=== PATIENT | female | born 1940 | race Caucasian/White ===

== ENCOUNTER 2021-07-08 15:03 | Inpatient (IN) | payer OTHER ==
[~2021-07-08] VITALS: Ht 167.6 cm; Wt 52.3 kg
[2021-07-08 16:22] LABS: BASOPHILS % (AUTO) 0.3 % (0-1); EOSINOPHILS % (AUTO) 0 % (0-6); HEMATOCRIT 42.1 % (35.0-45.0); HEMOGLOBIN 13.9 g/dl (12.0-16.0); MEAN CORPUSCULAR VOLUME 90.9 FL (78-98); MEAN PLATELET VOLUME 9.4 FL (7.4-10.4); MONOCYTES # (AUTO) 0.9 X10'3 (0-0.9); MONOCYTES % (AUTO) 7.5 % (2-12); NEUTROPHILS # (AUTO) 9.5 X10'3 (1.8-7.7); NEUTROPHILS % (AUTO) 83.2 % (42-75); PLATELET COUNT 198 X10'3 (140-440); RED BLOOD COUNT 4.63 X10'6 (4.20-5.60); RED CELL DISTRIBUTION WIDTH 14.6 % (11.5-14.5); WHITE BLOOD COUNT 11.4 X10'3 (4.5-11.0)
[2021-07-08 16:34] LABS: ALANINE AMINOTRANSFERASE 71 U/L (12-78); ALBUMIN/GLOBULIN RATIO 0.7 (1.1-1.5); ALKALINE PHOSPHATASE 83 IU/L (46-116); ANION GAP 11 (8-16); ASPARTATE AMINO TRANSFERASE 76 U/L (10-37); BILIRUBIN,TOTAL 1.7 MG/DL (0.1-1.0); BLOOD UREA NITROGEN 50 MG/DL (7-18); CALCIUM 9.6 MG/DL (8.5-10.1); CHLORIDE 111 MMOL/L (99-107); CREATININE 1.02 MG/DL (0.40-0.90); GLUCOSE 191 MG/DL (70-104); POTASSIUM 3.6 MMOL/L (3.5-5.1); SODIUM 151 MMOL/L (135-145); TOTAL CARBON DIOXIDE 28.7 MMOL/L (24-32); TOTAL PROTEIN 7.3 G/DL (6.4-8.2); eGFR 52 ML/MIN
[2021-07-08] MEDS ORDERED: normal saline 1000ml 1,000 ML IV ONE (22:30)
[2021-07-09 01:35] LABS: CLARITY,URINE SLIGHTLY CLOUDY (Clear); COLOR,URINE YELLOW (Yellow); GLUCOSE, URINE NEGATIVE (Neg); KETONES,URINE NEGATIVE (Neg); LEUKOCYTE ESTERASE ,URINE NEGATIVE (Neg); NITRITES, URINE NEGATIVE (Neg); OCCULT BLOOD,URINE LARGE (Neg); PROTEIN,URINE 30 mg/dl (Neg); UROBILINOGEN,URINE 0.2 E.U/dL (0.2-1.0)
[2021-07-09 01:42] LABS: UA COLLECTION TYPE STRAIGHT CATH
[2021-07-09] MEDS ORDERED: magnesium hydroxide 30ml (MOM) UD suspension PO PRN (01:45)
[2021-07-09] MEDS ORDERED: acetaminophen 325mg tablet PO PRN ×2 (01:45)
[2021-07-09] MEDS ORDERED: diphenhydrAMINE 50 mg/ml inj IV PRN (01:45)
[2021-07-09] MEDS ORDERED: bisacodyl 10mg suppository rectal RC PRN (01:45)
[2021-07-09] MEDS ORDERED: acetaminophen 650mg rectal suppository RC PRN (01:45)
[2021-07-09] MEDS ORDERED: morphine 2 MG/ML inj. syringe IV PRN ×2 (01:45)
[2021-07-09] MEDS ORDERED: mag hydrox/Alum hydrox/simeth 30ml oral suspension PO PRN (01:45)
[2021-07-09] MEDS ORDERED: diphenhydrAMINE 25mg capsule PO PRN (01:45)
[2021-07-09] MEDS ORDERED: ondansetron/PF 4mg/2ml inj IV PRN (01:45)
[2021-07-09] MEDS ORDERED: ondansetron 4mg rapidly disintigrating tab PO PRN (01:45)
[2021-07-09] MEDS: dextrose 5%-water 1,000 ML IV SCH ×3 (02:03→14:00)
[2021-07-09 02:04] LABS: BACTERIA,URINE 2+ /HPF (Neg); SQUAMOUS EPITHELIAL CELL,UR FEW /LPF (FEW)
[2021-07-09 02:05] LABS: YEAST MODERATE /HPF (NEGATIVE)
[2021-07-09 02:13] LABS: HEMOGLOBIN A1C 5.6 % (4.5-6.2)
--- NOTE | 2021-07-09 02:20 | NUR ---
right medical heel wound, quarter sized black region. kimberlee Combs notified by phone per his request
[2021-07-09 02:24] LABS: MAGNESIUM 2.6 MG/DL (1.5-2.4); PHOSPHORUS 3.9 MG/DL (2.3-4.5)
[2021-07-09 03:25] LABS: APTT 21 SECONDS (22-32)
[2021-07-09 04:10] VITALS: BP 133/90
--- NOTE | 2021-07-09 04:10 | NUR ---
PATIENT ADMITTED TO ROOM 356B FROM ER FOR HYPERNATREMIA. PLACED COMFORTABLE IN BED. VITAL SIGNS TAKEN AND RECORDED.
--- NOTE | 2021-07-09 06:14 | NUR ---
Problems reprioritized. Patient report given, questions answered & plan of care reviewed with BRAIN ACI.
--- NOTE | 2021-07-09 06:20 | NUR ---
Patient in room [facility]. I have received report from AYALA COSBY and had the opportunity to ask questions and assume patient care.
[2021-07-09 07:00] VITALS: BP 119/65
[2021-07-09] MEDS: pantoprazole 40mg Tablet.DR PO SCH (07:30)
[2021-07-09] MEDS: docusate sod 100mg capsule PO SCH ×2 (08:00→20:54)
[2021-07-09] MEDS: ciprofloxacin/D5W 200mg/100mL 100 ML IV SCH ×2 (08:00→20:53)
[2021-07-09] MEDS: heparin, porcine 5000 units/ml vial SQ SCH ×2 (08:03→20:54)
[2021-07-09 10:00] LABS: ALBUMIN 2.2 G/DL (3.4-5.0); ANION GAP 7 (8-16); BLOOD UREA NITROGEN 51 MG/DL (7-18); BUN/CREATININE RATIO 65.4 (6.6-38.0); CALCIUM 8.4 MG/DL (8.5-10.1); CHLORIDE 113 MMOL/L (99-107); CREATININE 0.78 MG/DL (0.40-0.90); GLUCOSE 184 MG/DL (70-104); POTASSIUM 3.5 MMOL/L (3.5-5.1); SODIUM 147 MMOL/L (135-145); TOTAL CARBON DIOXIDE 26.8 MMOL/L (24-32); eGFR 71 ML/MIN
[2021-07-09 11:11] VITALS: BP 112/61
--- NOTE | 2021-07-09 14:28 | NUR ---
Calorie count consult: Calorie count not indicated at this time as pt is on a clear liquid diet which will not meet patient's estimated nutrient needs given the nature of the diet. Per H&P pt with h/o malnutrition, right heel decubitus stage II, advanced dementia, and dysphagia. Per ED report pt was eating soft food for the last several weeks however two days ago stopped eating or drinking anything with increased difficulty swallowing. Pt s/p BSS with ST recs to continue current diet as pt able to swallow liquids but spits out food. Pt documented with 0% PO intake first meal. Pt at a high risk for malnutrition if to continue on restricted diet and/or acceptance of PO intake does not improve. Recommend advancing diet to regular or at least full liquids to allow more variety in hopes of optimizing PO intake. IF PO intake does not improve pt would benefit from nutrition support to meet estimated nutrient needs if within POC. Noted pt receiving D5 at 100 mL/hr providing 408 kcal/day. Pt with a low Gume of 10, pending wound care assessment at this time. Will continue to follow closely and make recommendations as appropriate. Recommendations: 1) Advance to regular diet as medically indicated with f/u BSS with ST 2) IF unable to advance to solid food consider advancing to full liquid diet to allow additional options 3) IF unable to advance diet and/or meal acceptance does not improve, consider EN if within POC 4) Routine bowel care 5) Scaled weight this admit; weekly scaled weights thereafter Addendum: 07/09/21 at [address] Amended: Links added.
[2021-07-09] MEDS ORDERED: NO HOME MEDS (15:59)
--- NOTE | 2021-07-09 18:14 | NUR ---
Patient in room [facility]. I have received report from AYALA Anderson and had the opportunity to ask questions and assume patient care.
--- NOTE | 2021-07-09 18:58 | NUR ---
Patient in room [facility]. I have received report from AYALA Tello and had the opportunity to ask questions and assume patient care.
[2021-07-09 20:00] VITALS: BP 103/58
[2021-07-09] MEDS: lactobacillus rhamnosus 10,000 MMU CELLS/CAPSULE PO SCH (20:54)
[2021-07-09] MEDS ORDERED: temazepam 15mg capsule PO PRN (21:00)
[2021-07-10] VITALS: BP 107/50
[2021-07-10] MEDS: dextrose 5%-water 1,000 ML IV SCH ×2 (00:53→15:09)
--- NOTE | 2021-07-10 03:15 | NUR ---
notified requesting nix cath for pt being incontinent and having sacral wound
[2021-07-10] MEDS ORDERED: LIDOcaine 2% 10ml TOPICAL JELLY (Urojet) TP ONE (03:20)
--- NOTE | 2021-07-10 06:45 | NUR ---
Problems reprioritized. Patient report given, questions answered & plan of care reviewed with AYALA Ortega.
[2021-07-10 07:10] LABS: BASOPHILS % (AUTO) 0.1 % (0-1); EOSINOPHILS % (AUTO) 0.2 % (0-6); HEMATOCRIT 29.5 % (35.0-45.0); HEMOGLOBIN 10.1 g/dl (12.0-16.0); LYMPHOCYTES # (AUTO) 1.2 X10'3 (1.1-4.8); LYMPHOCYTES % (AUTO) 17.9 % (21-51); MEAN CORPUSCULAR HEMOGLOBIN 30.8 PG (27.0-31.0); MEAN CORPUSCULAR HGB CONC 34.2 g/dL (33.0-36.5); MEAN CORPUSCULAR VOLUME 89.9 FL (78-98); MEAN PLATELET VOLUME 9.9 FL (7.4-10.4); MONOCYTES # (AUTO) 0.5 X10'3 (0-0.9); MONOCYTES % (AUTO) 7.4 % (2-12); NEUTROPHILS % (AUTO) 74.4 % (42-75); PLATELET COUNT 116 X10'3 (140-440); RED BLOOD COUNT 3.28 X10'6 (4.20-5.60); WHITE BLOOD COUNT 6.7 X10'3 (4.5-11.0)
[2021-07-10 07:34] LABS: ALANINE AMINOTRANSFERASE 65 U/L (12-78); ALBUMIN/GLOBULIN RATIO 0.7 (1.1-1.5); ALKALINE PHOSPHATASE 59 IU/L (46-116); ANION GAP 6 (8-16); ASPARTATE AMINO TRANSFERASE 56 U/L (10-37); BILIRUBIN,TOTAL 1.1 MG/DL (0.1-1.0); BLOOD UREA NITROGEN 33 MG/DL (7-18); BUN/CREATININE RATIO 51.6 (6.6-38.0); CALCIUM 8.2 MG/DL (8.5-10.1); CHLORIDE 106 MMOL/L (99-107); CHOLESTEROL 105 MG/DL (0-200); CREATININE 0.64 MG/DL (0.40-0.90); GLUCOSE 154 MG/DL (70-104); HDL CHOLESTEROL 35 MG/DL (35-60); LDL CHOLESTEROL 55 MG/DL (50-100); PHOSPHORUS 1.8 MG/DL (2.3-4.5); POTASSIUM 3.3 MMOL/L (3.5-5.1); SODIUM 139 MMOL/L (135-145); TOTAL CARBON DIOXIDE 26.8 MMOL/L (24-32); TRIGLYCERIDES 94 MG/DL (20-135); eGFR 90 ML/MIN
[2021-07-10 08:00] VITALS: BP 113/57
[2021-07-10] MEDS: pantoprazole 40mg Tablet.DR PO SCH (10:19)
[2021-07-10] MEDS: docusate sod 100mg capsule PO SCH ×2 (10:19→19:27)
[2021-07-10] MEDS: heparin, porcine 5000 units/ml vial SQ SCH ×2 (10:20→20:00)
[2021-07-10] MEDS: lactobacillus rhamnosus 10,000 MMU CELLS/CAPSULE PO SCH ×2 (10:21→19:27)
[2021-07-10] MEDS: ciprofloxacin/D5W 200mg/100mL 100 ML IV SCH ×2 (10:39→20:00)
[2021-07-10 11:00] VITALS: BP 116/58
--- NOTE | 2021-07-10 14:37 | NUR ---
Malnutrition consult: Pt reports 14-23 lb wt loss with decreased appetite per malnutrition risk screen with RN. Unable to obtain information from pt as pt A/O x 1 and confused with h/o dementia. Current documented wt isn't scaled and pt with no scaled wt hx in EMR. Pt s/p f/u BSS today with ST recs pureed food with thin liquids. Pending documentation of first meal since diet liberalization. Per ED report pt was eating soft food for the last several weeks however two days [employer] stopped eating or drinking anything with increased difficulty swallowing. Pt documented with severe muscle weakness and no edema. Pt appears well developed well nourished per H&P. Pt currently lacks a minimum of two criteria for malnutrition though at a high risk if continues with insufficient PO intake. Pt seen by wound care, per report pt with a DTI to right heel and bilat hips with an unstageable sacral PU. Will continue to follow closely and make recommendations as appropriate pending trends in PO intake. Recommendations: 1) Continue pureed diet with thin liquids per ST recs 2) Monitor need for ONS pending trends in PO intake 3) IF meal acceptance does not improve, consider EN if within POC 4) Routine bowel care 5) Scaled weight this admit; weekly scaled weights thereafter Addendum: 07/10/21 at [address] Amended: Links added.
--- NOTE | 2021-07-10 15:00 | NUR ---
Paged Dr. Swartz Message: Surgical Taishaa RN ext [phone]. RE: Kim Tai. K is 3.3 today, can I get K replacement order?
[2021-07-10] MEDS ORDERED: potassium Cl 20 mEq SR tablet PO PRN (16:30)
[2021-07-10] MEDS ORDERED: magnesium Cl slow-release 64mg tablet PO PRN (16:30)
[2021-07-10] MEDS ORDERED: magnesium 4gm in 100ml NS 100 ML IV PRN (16:30)
[2021-07-10] MEDS ORDERED: potassium Cl 40MEQ/1/2NS 520ml 520 ML IV PRN (16:30)
[2021-07-10] MEDS: potassium Cl 20 mEq SR tablet PO PRN (17:38)
--- NOTE | 2021-07-10 18:34 | NUR ---
Problems reprioritized. Patient report given, questions answered & plan of care reviewed with Yamilka CAI.
[2021-07-10 20:00] VITALS: BP 118/80
[2021-07-10] MEDS: K and/or MAG REPLACEMENT MC SCH (20:00)
[2021-07-11] MEDS: potassium Cl 20 mEq SR tablet PO PRN (02:11)
[2021-07-11 06:30] VITALS: BP 129/62
[2021-07-11 06:37] LABS: HEMATOCRIT 29.8 % (35.0-45.0); HEMOGLOBIN 10.4 g/dl (12.0-16.0); MEAN CORPUSCULAR HGB CONC 34.8 g/dL (33.0-36.5); PLATELET COUNT 154 X10'3 (140-440); WHITE BLOOD COUNT 6.8 X10'3 (4.5-11.0)
[2021-07-11 06:38] LABS: BASOPHILS % (AUTO) 0.2 % (0-1); EOSINOPHILS % (AUTO) 0.2 % (0-6); LYMPHOCYTES # (AUTO) 0.6 X10'3 (1.1-4.8); LYMPHOCYTES % (AUTO) 9.1 % (21-51); MEAN CORPUSCULAR HEMOGLOBIN 30.2 PG (27.0-31.0); MEAN CORPUSCULAR VOLUME 86.8 FL (78-98); MEAN PLATELET VOLUME 9.7 FL (7.4-10.4); MONOCYTES # (AUTO) 0.5 X10'3 (0-0.9); MONOCYTES % (AUTO) 6.6 % (2-12); NEUTROPHILS # (AUTO) 5.7 X10'3 (1.8-7.7); NEUTROPHILS % (AUTO) 83.9 % (42-75); RED BLOOD COUNT 3.44 X10'6 (4.20-5.60); RED CELL DISTRIBUTION WIDTH 13.6 % (11.5-14.5)
[2021-07-11 06:50] LABS: ALANINE AMINOTRANSFERASE 73 U/L (12-78); ALBUMIN 2.2 G/DL (3.4-5.0); ALBUMIN/GLOBULIN RATIO 0.6 (1.1-1.5); ALKALINE PHOSPHATASE 73 IU/L (46-116); ANION GAP 8 (8-16); ASPARTATE AMINO TRANSFERASE 47 U/L (10-37); BILIRUBIN,TOTAL 1.5 MG/DL (0.1-1.0); BLOOD UREA NITROGEN 17 MG/DL (7-18); BUN/CREATININE RATIO 28.8 (6.6-38.0); CALCIUM 8.4 MG/DL (8.5-10.1); CHLORIDE 104 MMOL/L (99-107); CREATININE 0.59 MG/DL (0.40-0.90); GLUCOSE 173 MG/DL (70-104); MAGNESIUM 1.9 MG/DL (1.5-2.4); PHOSPHORUS 1.9 MG/DL (2.3-4.5); POTASSIUM 3.9 MMOL/L (3.5-5.1); SODIUM 134 MMOL/L (135-145); TOTAL CARBON DIOXIDE 22.2 MMOL/L (24-32); TOTAL PROTEIN 5.6 G/DL (6.4-8.2); eGFR > 90 ML/MIN
--- NOTE | 2021-07-11 06:50 | NUR ---
Patient in room [facility]. I have received report from AYALA Prather and had the opportunity to ask questions and assume patient care.
[2021-07-11 07:29] LABS: LARGE PLATELETS FEW; PLATELET ESTIMATE NORMAL; TOTAL CELLS COUNTED 100
[2021-07-11] MEDS: K and/or MAG REPLACEMENT MC SCH ×2 (08:00→20:00)
[2021-07-11] MEDS: dextrose 5%-water 1,000 ML IV SCH ×2 (09:59→15:02)
[2021-07-11] MEDS: heparin, porcine 5000 units/ml vial SQ SCH ×2 (10:53→19:54)
[2021-07-11] MEDS: pantoprazole 40mg Tablet.DR PO SCH (10:53)
[2021-07-11] MEDS: lactobacillus rhamnosus 10,000 MMU CELLS/CAPSULE PO SCH ×2 (10:53→19:53)
[2021-07-11] MEDS: ciprofloxacin/D5W 200mg/100mL 100 ML IV SCH (10:53)
[2021-07-11] MEDS: docusate sod 100mg capsule PO SCH ×2 (10:53→19:53)
[2021-07-11 11:00] VITALS: BP 118/57
--- NOTE | 2021-07-11 12:30 | NUR ---
Problems reprioritized. Patient report given, questions answered & plan of care reviewed with AYALA Argueta.
--- NOTE | 2021-07-11 12:54 | NUR ---
Patient in room [facility] 356B. I have received report from AYALA Dias and had the opportunity to ask questions and assume patient care.
--- NOTE | 2021-07-11 13:42 | NUR ---
PRESSURE ULCER EDUCATION: DEFINITION: A pressure ulcer is an area of skin that breaks down when you stay in one position too long. The constant pressure against the skin reduces the blood flow to that area and the affected tissue dies. CAUSES: "Being bedridden or in a wheelchair "Fragile skin "Having a chronic condition, such as diabetes or vascular disease "Inability to move certain parts of your body without assistance "Older age "Incontinence of urine or stool SYMPTOMS: "A reddened area that DOES NOT turn white when pressed on - this can be the beginning of a pressure ulcer "A blister, deep sore or a crater - these can be advanced pressure ulcers FIRST AID: "Relieve the pressure on this area "Keep the area clean and dry "Call your primary doctor if you see any of the above symptoms "DO NOT massage the area "DO NOT use a donut shaped or ring shaped pillow- these actually interfere with the blood flow and cause complications PREVENTION: "Check for pressure ulcers everyday "Change position at least every two hours to relieve pressure "Use items that help relieve pressure- pillows, sheepskin, foam padding, and powders. "Keep skin clean and dry "Eat healthy well balanced meals "Exercise daily IF YOU SEE ANY OF THESE SYMPTOMS WHILE IN THE HOSPITAL - TELL YOUR NURSE IMMEDIATELY. IF YOU SEE ANY OF THESE SYMPTOMS WHILE AT HOME OR HAVE ANY QUESTIONS OR CONCERNS ABOUT PRESSURE ULCERS - CALL YOUR PRIMARY DOCTOR IMMEDIATELY. Addendum: 07/11/21 at 1342 by Maddy Figueora RN Amended: Links added.
[2021-07-11 18:00] VITALS: BP 140/76
--- NOTE | 2021-07-11 18:15 | NUR ---
Patient report given, questions answered & plan of care reviewed with Monica Mckinney RN.
--- NOTE | 2021-07-11 18:15 | NUR ---
Pt is to be placed on special-order bed once it's obtained from [facility] dept. Monica CAI, and Evette Ruiz RN are aware.
--- NOTE | 2021-07-11 18:33 | NUR ---
Patient in room [facility]. I have received report from AYALA Argueta and had the opportunity to ask questions and assume patient care.
--- NOTE | 2021-07-11 21:28 | NUR ---
notified regarding Cipro po meds are not available. order to change to IV cipro.
[2021-07-11] MEDS ORDERED: ciprofloxacin 250mg tablet PO SCH (22:00)
[2021-07-12] VITALS: BP 90/42
[2021-07-12 05:42] LABS: BASOPHILS % (AUTO) 0.2 % (0-1); EOSINOPHILS % (AUTO) 0.3 % (0-6); HEMATOCRIT 29.5 % (35.0-45.0); HEMOGLOBIN 10.1 g/dl (12.0-16.0); LYMPHOCYTES % (AUTO) 14.4 % (21-51); MEAN CORPUSCULAR HEMOGLOBIN 30.3 PG (27.0-31.0); MEAN CORPUSCULAR HGB CONC 34.2 g/dL (33.0-36.5); MEAN CORPUSCULAR VOLUME 88.5 FL (78-98); MEAN PLATELET VOLUME 10.2 FL (7.4-10.4); MONOCYTES # (AUTO) 0.5 X10'3 (0-0.9); MONOCYTES % (AUTO) 8.1 % (2-12); NEUTROPHILS # (AUTO) 5.1 X10'3 (1.8-7.7); PLATELET COUNT 124 X10'3 (140-440); RED BLOOD COUNT 3.33 X10'6 (4.20-5.60); RED CELL DISTRIBUTION WIDTH 13.8 % (11.5-14.5); WHITE BLOOD COUNT 6.6 X10'3 (4.5-11.0)
[2021-07-12 06:01] LABS: ALANINE AMINOTRANSFERASE 53 U/L (12-78); ALBUMIN 1.9 G/DL (3.4-5.0); ALBUMIN/GLOBULIN RATIO 0.7 (1.1-1.5); ALKALINE PHOSPHATASE 68 IU/L (46-116); ANION GAP 7 (8-16); ASPARTATE AMINO TRANSFERASE 28 U/L (10-37); BILIRUBIN,TOTAL 1.3 MG/DL (0.1-1.0); BLOOD UREA NITROGEN 17 MG/DL (7-18); BUN/CREATININE RATIO 29.3 (6.6-38.0); CALCIUM 7.9 MG/DL (8.5-10.1); CHLORIDE 104 MMOL/L (99-107); CREATININE 0.58 MG/DL (0.40-0.90); GLUCOSE 142 MG/DL (70-104); MAGNESIUM 1.8 MG/DL (1.5-2.4); POTASSIUM 3.4 MMOL/L (3.5-5.1); SODIUM 136 MMOL/L (135-145); TOTAL CARBON DIOXIDE 24.6 MMOL/L (24-32); TOTAL PROTEIN 4.8 G/DL (6.4-8.2); eGFR > 90 ML/MIN
--- NOTE | 2021-07-12 06:17 | NUR ---
Problems reprioritized. Patient report given, questions answered & plan of care reviewed with AYALA Underwood.
[2021-07-12 07:00] VITALS: BP 129/65
[2021-07-12] MEDS: K and/or MAG REPLACEMENT MC SCH ×2 (08:00→20:00)
[2021-07-12] MEDS ORDERED: POTASSIUM BICARB 20meq eff tab 20 MEQ TABLET.EFF PO PRN (09:43)
[2021-07-12] MEDS: ciprofloxacin lact 400MG/200ML 200 ML IV SCH ×2 (10:16→21:38)
[2021-07-12] MEDS: lactobacillus rhamnosus 10,000 MMU CELLS/CAPSULE PO SCH ×2 (10:19→21:38)
[2021-07-12] MEDS: POTASSIUM BICARB 20meq eff tab 20 MEQ TABLET.EFF PO PRN ×3 (10:21→22:02)
[2021-07-12] MEDS: docusate sod 100mg capsule PO SCH (10:22)
[2021-07-12] MEDS: heparin, porcine 5000 units/ml vial SQ SCH ×2 (10:22→21:39)
[2021-07-12] MEDS: pantoprazole 40mg Tablet.DR PO SCH (10:22)
[2021-07-12 12:00] VITALS: BP 136/74
[2021-07-12] MEDS: dextrose 5%-water 1,000 ML IV SCH (12:58)
[2021-07-12] MEDS: Dakins solution (1/4 strength) 473ml solution TP SCH (15:56)
--- NOTE | 2021-07-12 16:54 | NUR ---
Discussed pressure area on sacrum with Dr Swartz to giovana wound care nurses additional orders to contact a surgeon. He says that is not necessary at this point to contact surgeon. continue wound care as ordered with inpatient wound care.
--- NOTE | 2021-07-12 17:00 | NUR ---
pt resting comfortably in bed. No changes in condition. All questions answered.
[2021-07-12 20:00] VITALS: BP 126/56
[2021-07-12] MEDS ORDERED: docusate sodium 100mg/10ml UD cup PO SCH (21:43)
[2021-07-12] MEDS: docusate sodium 100mg/10ml UD cup PO SCH (21:54)
[2021-07-13] VITALS: BP 136/55
[2021-07-13 06:40] LABS: BASOPHILS % (AUTO) 0.2 % (0-1); EOSINOPHILS % (AUTO) 0.7 % (0-6); HEMATOCRIT 30.7 % (35.0-45.0); HEMOGLOBIN 10.7 g/dl (12.0-16.0); LYMPHOCYTES # (AUTO) 0.8 X10'3 (1.1-4.8); MEAN CORPUSCULAR HEMOGLOBIN 30.8 PG (27.0-31.0); MEAN CORPUSCULAR HGB CONC 34.9 g/dL (33.0-36.5); MEAN CORPUSCULAR VOLUME 88.1 FL (78-98); MEAN PLATELET VOLUME 10.3 FL (7.4-10.4); MONOCYTES # (AUTO) 0.6 X10'3 (0-0.9); MONOCYTES % (AUTO) 9.3 % (2-12); NEUTROPHILS # (AUTO) 4.8 X10'3 (1.8-7.7); NEUTROPHILS % (AUTO) 76.8 % (42-75); PLATELET COUNT 133 X10'3 (140-440); RED BLOOD COUNT 3.49 X10'6 (4.20-5.60); RED CELL DISTRIBUTION WIDTH 13.9 % (11.5-14.5); WHITE BLOOD COUNT 6.3 X10'3 (4.5-11.0)
[2021-07-13 07:13] LABS: ALANINE AMINOTRANSFERASE 50 U/L (12-78); ALBUMIN 1.9 G/DL (3.4-5.0); ALBUMIN/GLOBULIN RATIO 0.6 (1.1-1.5); ALKALINE PHOSPHATASE 71 IU/L (46-116); ANION GAP 5 (8-16); ASPARTATE AMINO TRANSFERASE 33 U/L (10-37); BILIRUBIN,TOTAL 1.2 MG/DL (0.1-1.0); BLOOD UREA NITROGEN 13 MG/DL (7-18); CALCIUM 8.1 MG/DL (8.5-10.1); CHLORIDE 103 MMOL/L (99-107); CREATININE 0.52 MG/DL (0.40-0.90); GLUCOSE 131 MG/DL (70-104); MAGNESIUM 1.9 MG/DL (1.5-2.4); PHOSPHORUS 2.2 MG/DL (2.3-4.5); POTASSIUM 3.7 MMOL/L (3.5-5.1); SODIUM 136 MMOL/L (135-145); TOTAL PROTEIN 5.1 G/DL (6.4-8.2); eGFR > 90 ML/MIN
[2021-07-13 08:00] VITALS: BP 125/69
[2021-07-13] MEDS: K and/or MAG REPLACEMENT MC SCH ×2 (08:00→20:00)
[2021-07-13] MEDS: docusate sodium 100mg/10ml UD cup PO SCH ×2 (09:21→21:44)
[2021-07-13] MEDS: lactobacillus rhamnosus 10,000 MMU CELLS/CAPSULE PO SCH ×2 (09:21→21:45)
[2021-07-13] MEDS: heparin, porcine 5000 units/ml vial SQ SCH ×2 (09:21→20:00)
[2021-07-13] MEDS: pantoprazole 40mg Tablet.DR PO SCH (09:21)
[2021-07-13] MEDS: ciprofloxacin lact 400MG/200ML 200 ML IV SCH ×2 (09:21→21:43)
[2021-07-13 12:00] VITALS: BP 110/54
--- NOTE | 2021-07-13 12:06 | NUR ---
Reassessment: Pt continues on Puree diet w/ low PO intake, avg 30% x 9 meals not meeting needs. Pt can benefit from Ensure Enlive TID. ONS alone would meet 71% of est energy needs and 100% of est protein needs if consumed 100%. Pt remains confused A&O x 1 and needs feeder per physical assessment. Pt also receiving D5 at 50ml/hr providing additional 204kcals/day. LBM 07/11. Will continue to monitor. Recommendations: 1) Continue pureed diet with thin liquids per ST recs 2) Ensure Enlive TID; pending MD verification. 3) IF meal acceptance does not improve, consider EN if within POC 4) Routine bowel care 5) Scaled weight this admit; weekly scaled weights thereafter Addendum: 07/13/21 at [address] Amended: Links added.
[2021-07-13] MEDS: dextrose 5%-water 1,000 ML IV SCH (16:07)
[2021-07-13 19:00] VITALS: BP 107/74
[2021-07-13] MEDS: Dakins solution (1/4 strength) 473ml solution TP SCH (21:44)
[2021-07-14] VITALS: BP 110/54
[2021-07-14] MEDS: HYDROcodone/acetaminophen 5mg/325mg tablet PO PRN ×2 (05:19→19:18)
[2021-07-14 06:37] LABS: BASOPHILS % (AUTO) 0.3 % (0-1); EOSINOPHILS % (AUTO) 0.5 % (0-6); HEMOGLOBIN 10.8 g/dl (12.0-16.0); LYMPHOCYTES % (AUTO) 14.9 % (21-51); MEAN CORPUSCULAR HEMOGLOBIN 30.6 PG (27.0-31.0); MEAN CORPUSCULAR HGB CONC 34.9 g/dL (33.0-36.5); MEAN CORPUSCULAR VOLUME 87.9 FL (78-98); MEAN PLATELET VOLUME 10.1 FL (7.4-10.4); MONOCYTES # (AUTO) 0.6 X10'3 (0-0.9); MONOCYTES % (AUTO) 9.4 % (2-12); NEUTROPHILS # (AUTO) 5.1 X10'3 (1.8-7.7); NEUTROPHILS % (AUTO) 74.9 % (42-75); PLATELET COUNT 176 X10'3 (140-440); RED BLOOD COUNT 3.53 X10'6 (4.20-5.60); WHITE BLOOD COUNT 6.7 X10'3 (4.5-11.0)
--- NOTE | 2021-07-14 06:40 | NUR ---
Problems reprioritized. Patient report given, questions answered & plan of care reviewed with Melvina CAI.
[2021-07-14 06:59] LABS: ALANINE AMINOTRANSFERASE 43 U/L (12-78); ALBUMIN/GLOBULIN RATIO 0.5 (1.1-1.5); ALKALINE PHOSPHATASE 71 IU/L (46-116); ANION GAP 3 (8-16); ASPARTATE AMINO TRANSFERASE 25 U/L (10-37); BILIRUBIN,TOTAL 1.2 MG/DL (0.1-1.0); BLOOD UREA NITROGEN 14 MG/DL (7-18); BUN/CREATININE RATIO 25.5 (6.6-38.0); CALCIUM 8.1 MG/DL (8.5-10.1); CHLORIDE 103 MMOL/L (99-107); CREATININE 0.55 MG/DL (0.40-0.90); GLUCOSE 126 MG/DL (70-104); MAGNESIUM 1.7 MG/DL (1.5-2.4); PHOSPHORUS 2.4 MG/DL (2.3-4.5); POTASSIUM 3.6 MMOL/L (3.5-5.1); SODIUM 136 MMOL/L (135-145); TOTAL CARBON DIOXIDE 30.1 MMOL/L (24-32); TOTAL PROTEIN 5.8 G/DL (6.4-8.2); eGFR > 90 ML/MIN
[2021-07-14] MEDS: pantoprazole 40mg Tablet.DR PO SCH (07:30)
[2021-07-14 08:00] VITALS: BP 139/66
[2021-07-14] MEDS: K and/or MAG REPLACEMENT MC SCH ×2 (08:00→20:00)
[2021-07-14] MEDS: ciprofloxacin lact 400MG/200ML 200 ML IV SCH ×2 (09:39→21:42)
[2021-07-14] MEDS: heparin, porcine 5000 units/ml vial SQ SCH ×2 (09:40→21:45)
[2021-07-14] MEDS: docusate sodium 100mg/10ml UD cup PO SCH ×2 (09:40→20:00)
[2021-07-14] MEDS: lactobacillus rhamnosus 10,000 MMU CELLS/CAPSULE PO SCH ×2 (09:40→20:00)
[2021-07-14 12:00] VITALS: BP 117/57
[2021-07-14] MEDS: dextrose 5%-water 1,000 ML IV SCH (13:34)
--- NOTE | 2021-07-14 18:35 | NUR ---
Patient in room [facility]. I have received report from Melvina CAI and had the opportunity to ask questions and assume patient care.
[2021-07-14 19:00] VITALS: BP 125/61
[2021-07-14] MEDS: Dakins solution (1/4 strength) 473ml solution TP SCH (21:41)
[2021-07-15] VITALS: BP 122/57
--- NOTE | 2021-07-15 06:30 | NUR ---
Patient in room [facility]. I have received report from Melvina CAI and had the opportunity to ask questions and assume patient care.
[2021-07-15 07:00] VITALS: BP 125/60
[2021-07-15] MEDS: Dakins solution (1/4 strength) 473ml solution TP SCH (08:00)
[2021-07-15] MEDS: K and/or MAG REPLACEMENT MC SCH ×2 (08:00→20:00)
[2021-07-15] MEDS: pantoprazole 40mg Tablet.DR PO SCH (08:49)
[2021-07-15] MEDS: heparin, porcine 5000 units/ml vial SQ SCH (08:49)
[2021-07-15] MEDS: ciprofloxacin lact 400MG/200ML 200 ML IV SCH ×2 (08:49→20:50)
[2021-07-15] MEDS: docusate sodium 100mg/10ml UD cup PO SCH ×2 (08:49→20:50)
[2021-07-15] MEDS: dextrose 5%-water 1,000 ML IV SCH (08:49)
[2021-07-15] MEDS: lactobacillus rhamnosus 10,000 MMU CELLS/CAPSULE PO SCH ×2 (08:52→20:50)
[2021-07-15 11:00] VITALS: BP 117/63
[2021-07-15 18:00] VITALS: BP 122/62
--- NOTE | 2021-07-15 18:30 | NUR ---
Patient in room [facility]. I have received report from Melvina CAI and had the opportunity to ask questions and assume patient care.
[2021-07-15] MEDS: HYDROcodone/acetaminophen 5mg/325mg tablet PO PRN (20:51)
[2021-07-15 23:38] VITALS: BP 109/53
[2021-07-16] MEDS: HYDROcodone/acetaminophen 5mg/325mg tablet PO PRN (05:04)
[2021-07-16 06:22] LABS: BASOPHILS % (AUTO) 0.2 % (0-1); EOSINOPHILS % (AUTO) 0.3 % (0-6); HEMATOCRIT 29.8 % (35.0-45.0); HEMOGLOBIN 10.4 g/dl (12.0-16.0); LYMPHOCYTES # (AUTO) 0.8 X10'3 (1.1-4.8); LYMPHOCYTES % (AUTO) 9.4 % (21-51); MEAN CORPUSCULAR HEMOGLOBIN 31.2 PG (27.0-31.0); MEAN CORPUSCULAR HGB CONC 34.8 g/dL (33.0-36.5); MEAN CORPUSCULAR VOLUME 89.7 FL (78-98); MEAN PLATELET VOLUME 8.9 FL (7.4-10.4); MONOCYTES # (AUTO) 0.7 X10'3 (0-0.9); MONOCYTES % (AUTO) 8.6 % (2-12); NEUTROPHILS # (AUTO) 6.8 X10'3 (1.8-7.7); NEUTROPHILS % (AUTO) 81.5 % (42-75); PLATELET COUNT 214 X10'3 (140-440); RED BLOOD COUNT 3.32 X10'6 (4.20-5.60); RED CELL DISTRIBUTION WIDTH 14.3 % (11.5-14.5); WHITE BLOOD COUNT 8.3 X10'3 (4.5-11.0)
--- NOTE | 2021-07-16 06:30 | NUR ---
Problems reprioritized. Patient report given, questions answered & plan of care reviewed with Melvina CAI.
[2021-07-16 06:53] LABS: ALANINE AMINOTRANSFERASE 36 U/L (12-78); ALBUMIN 1.9 G/DL (3.4-5.0); ALBUMIN/GLOBULIN RATIO 0.5 (1.1-1.5); ALKALINE PHOSPHATASE 78 IU/L (46-116); ANION GAP 8 (8-16); ASPARTATE AMINO TRANSFERASE 27 U/L (10-37); BILIRUBIN,TOTAL 1.4 MG/DL (0.1-1.0); BLOOD UREA NITROGEN 11 MG/DL (7-18); BUN/CREATININE RATIO 20.4 (6.6-38.0); CALCIUM 8.2 MG/DL (8.5-10.1); CHLORIDE 103 MMOL/L (99-107); CREATININE 0.54 MG/DL (0.40-0.90); GLUCOSE 137 MG/DL (70-104); POTASSIUM 3.7 MMOL/L (3.5-5.1); SODIUM 137 MMOL/L (135-145); TOTAL CARBON DIOXIDE 26.4 MMOL/L (24-32); TOTAL PROTEIN 5.4 G/DL (6.4-8.2); eGFR > 90 ML/MIN
[2021-07-16] MEDS: pantoprazole 40mg Tablet.DR PO SCH (07:21)
[2021-07-16] MEDS: docusate sodium 100mg/10ml UD cup PO SCH ×2 (07:21→20:36)
[2021-07-16] MEDS: lactobacillus rhamnosus 10,000 MMU CELLS/CAPSULE PO SCH ×2 (07:22→20:36)
[2021-07-16 08:00] VITALS: BP 129/61
[2021-07-16] MEDS: Dakins solution (1/4 strength) 473ml solution TP SCH (08:00)
[2021-07-16] MEDS: K and/or MAG REPLACEMENT MC SCH ×2 (08:00→20:00)
[2021-07-16] MEDS: ciprofloxacin lact 400MG/200ML 200 ML IV SCH ×2 (08:06→20:32)
[2021-07-16] MEDS: dextrose 5%-water 1,000 ML IV SCH ×2 (09:59→19:56)
[2021-07-16 11:00] VITALS: BP 130/58
--- NOTE | 2021-07-16 11:22 | NUR ---
rn spoke with son-in-law who stated that daughter kendra nor himself wou;ld be willing to be involved in making any healthcare related decisions. agustina DAMON notified and was told that a 2 DR consent could be done to proceed woth planned procedure. message to dr Barbour "promotional table spacer PAGER ID: [phone] MESSAGE: family not willing to consent to debridement, case management said procedure can be done with a 2 Dr consent, delisa and milady. ~Melvina [phone] (143 character message out of a maximum of 240) "
--- NOTE | 2021-07-16 13:25 | NUR ---
message to dr law "PAGER ID: [phone] MESSAGE: can I feed pt, procedure not likely today? 356B ~Melvina mohan [phone]"
[2021-07-16 18:00] VITALS: BP 134/74
--- NOTE | 2021-07-16 18:30 | NUR ---
Patient in room [facility]. I have received report from CAREY CAI and had the opportunity to ask questions and assume patient care.
[2021-07-17] VITALS: BP 132/52
--- NOTE | 2021-07-17 06:30 | NUR ---
Problems reprioritized. Patient report given, questions answered & plan of care reviewed with GENA CIA.
[2021-07-17 07:15] VITALS: BP 110/51
[2021-07-17] MEDS: pantoprazole 40mg Tablet.DR PO SCH (07:30)
[2021-07-17] MEDS: K and/or MAG REPLACEMENT MC SCH ×2 (08:00→19:00)
[2021-07-17] MEDS: lactobacillus rhamnosus 10,000 MMU CELLS/CAPSULE PO SCH ×2 (08:17→20:19)
[2021-07-17] MEDS: docusate sodium 100mg/10ml UD cup PO SCH ×2 (08:17→20:19)
[2021-07-17] MEDS: Dakins solution (1/4 strength) 473ml solution TP SCH (09:34)
--- NOTE | 2021-07-17 10:46 | NUR ---
PAGER ID: [phone] MESSAGE: [phone] Lois Tai: I am ready to change dressing whenever you are available to come look at the patients wound. thanks! annamaria [phone]
--- NOTE | 2021-07-17 11:17 | NUR ---
Reassessment: Pt continues on Puree diet w/ low PO intake, avg 44% x 8 meals partially meeting needs. Noted Ensure Enlive TID unverified in EMR though pt can still benefit from it given poor PO and wound healing needs, d/w RN. ONS alone would meet 71% of est energy needs and 85% of est protein needs if consumed 100%. Pt may be going for debridement of wound today per EMR. Pt remains confused A&O x 1 and needs feeder per physical assessment. Pt also receiving D5 at 50ml/hr providing additional 204kcals/day. LBM 07/11. Will continue to monitor. Recommendations: 1) Continue pureed diet with thin liquids per ST recs 2) Ensure Enlive TID; pending MD verification. 3) IF meal acceptance does not improve, consider EN if within POC 4) Routine bowel care 5) Scaled weight this admit; weekly scaled weights thereafter Addendum: 07/17/21 at [address] Amended: Links added.
[2021-07-17] MEDS: ciprofloxacin 250mg tablet PO SCH (11:43)
[2021-07-17 12:00] VITALS: BP 133/64
--- NOTE | 2021-07-17 15:33 | NUR ---
PAGER ID: [phone] MESSAGE: [phone] Lois Tai: spoke with Ankita in . the patients son-in-law called and left a message consenting to debridement... would that be acceptable? annamaria [phone]
[2021-07-17 18:00] VITALS: BP 117/81
--- NOTE | 2021-07-17 18:17 | NUR ---
Problems reprioritized. Patient report given, questions answered & plan of care reviewed with AYALA Joseph.
--- NOTE | 2021-07-17 18:27 | NUR ---
Patient in room [facility]. I have received report from Alma CAI and had the opportunity to ask questions and assume patient care.
[2021-07-17] MEDS: dextrose 5%-water 1,000 ML IV SCH (20:19)
--- NOTE | 2021-07-17 23:20 | NUR ---
Student documentation: I have reviewed interventions, assessments performed and documented by Giselle osborn
[2021-07-18] VITALS: BP 113/59
[2021-07-18] MEDS: ciprofloxacin 250mg tablet PO SCH ×3 (00:05→22:34)
--- NOTE | 2021-07-18 06:46 | NUR ---
Problems reprioritized. Patient report given, questions answered & plan of care reviewed with Alma CAI.
[2021-07-18 07:00] VITALS: BP 114/60
[2021-07-18] MEDS: K and/or MAG REPLACEMENT MC SCH ×2 (08:00→20:00)
[2021-07-18] MEDS: lactobacillus rhamnosus 10,000 MMU CELLS/CAPSULE PO SCH ×2 (09:08→20:46)
[2021-07-18] MEDS: pantoprazole 40mg Tablet.DR PO SCH (09:08)
[2021-07-18] MEDS: Dakins solution (1/4 strength) 473ml solution TP SCH (09:09)
[2021-07-18] MEDS: docusate sodium 100mg/10ml UD cup PO SCH ×2 (09:09→20:46)
--- NOTE | 2021-07-18 10:14 | NUR ---
Problems reprioritized. Patient report given, questions answered & plan of care reviewed with AYALA Contreras.
--- NOTE | 2021-07-18 10:32 | NUR ---
Assumed care of pt from [facility] with no change to previous assessment.
[2021-07-18 12:00] VITALS: BP 106/47
--- NOTE | 2021-07-18 12:23 | NUR ---
ASSUMING CARE OF PATIENT. PATIENT SLEEPING AT THIS TIME.
--- NOTE | 2021-07-18 18:49 | NUR ---
REPORT GIVEN TO DANGELO PIERSON RN, PATIENT RESTING COMFORTABLY IN BED. NO SIGNIFICANT CHANGES.
--- NOTE | 2021-07-18 18:50 | NUR ---
Patient in room [facility]. I have received report from PARTH CAI and had the opportunity to ask questions and assume patient care.
[2021-07-18] MEDS: dextrose 5%-water 1,000 ML IV SCH (19:00)
[2021-07-18 20:00] VITALS: BP 132/67
--- NOTE | 2021-07-19 06:30 | NUR ---
Problems reprioritized. Patient report given, questions answered & plan of care reviewed with ANANYA CAI.
--- NOTE | 2021-07-19 07:10 | NUR ---
Patient in room [facility]. I have received report from Clover Galo and had the opportunity to ask questions and assume patient care.
[2021-07-19 08:00] VITALS: BP 106/46
[2021-07-19] MEDS: K and/or MAG REPLACEMENT MC SCH ×2 (08:00→20:00)
[2021-07-19 08:22] LABS: BASOPHILS % (AUTO) 0.6 % (0-1); EOSINOPHILS % (AUTO) 0.6 % (0-6); HEMATOCRIT 30.2 % (35.0-45.0); HEMOGLOBIN 10.5 g/dl (12.0-16.0); LYMPHOCYTES # (AUTO) 1.1 X10'3 (1.1-4.8); LYMPHOCYTES % (AUTO) 21.1 % (21-51); MEAN CORPUSCULAR HEMOGLOBIN 30.5 PG (27.0-31.0); MEAN CORPUSCULAR HGB CONC 34.7 g/dL (33.0-36.5); MEAN CORPUSCULAR VOLUME 87.8 FL (78-98); MEAN PLATELET VOLUME 7.9 FL (7.4-10.4); MONOCYTES # (AUTO) 0.5 X10'3 (0-0.9); MONOCYTES % (AUTO) 10.6 % (2-12); NEUTROPHILS # (AUTO) 3.4 X10'3 (1.8-7.7); NEUTROPHILS % (AUTO) 67.1 % (42-75); PLATELET COUNT 281 X10'3 (140-440); RED BLOOD COUNT 3.44 X10'6 (4.20-5.60); RED CELL DISTRIBUTION WIDTH 14.2 % (11.5-14.5)
[2021-07-19] MEDS: docusate sodium 100mg/10ml UD cup PO SCH ×2 (08:23→20:07)
[2021-07-19] MEDS: pantoprazole 40mg Tablet.DR PO SCH (08:23)
[2021-07-19] MEDS: lactobacillus rhamnosus 10,000 MMU CELLS/CAPSULE PO SCH ×2 (08:23→20:07)
[2021-07-19 08:34] LABS: ALANINE AMINOTRANSFERASE 26 U/L (12-78); ALBUMIN 2.1 G/DL (3.4-5.0); ALBUMIN/GLOBULIN RATIO 0.6 (1.1-1.5); ALKALINE PHOSPHATASE 77 IU/L (46-116); ANION GAP 3 (8-16); ASPARTATE AMINO TRANSFERASE 16 U/L (10-37); BILIRUBIN,TOTAL 1.2 MG/DL (0.1-1.0); BLOOD UREA NITROGEN 11 MG/DL (7-18); BUN/CREATININE RATIO 23.9 (6.6-38.0); CALCIUM 8.5 MG/DL (8.5-10.1); CHLORIDE 102 MMOL/L (99-107); CREATININE 0.46 MG/DL (0.40-0.90); GLUCOSE 120 MG/DL (70-104); POTASSIUM 4.1 MMOL/L (3.5-5.1); SODIUM 135 MMOL/L (135-145); TOTAL CARBON DIOXIDE 29.9 MMOL/L (24-32); TOTAL PROTEIN 5.6 G/DL (6.4-8.2); eGFR > 90 ML/MIN
[2021-07-19] MEDS: vancomycin/NS 1 GM ADD-VANTAGE 250 ML IV SCH (10:00)
[2021-07-19 11:00] VITALS: BP 115/52
[2021-07-19] MEDS: Dakins solution (1/4 strength) 473ml solution TP SCH (16:00)
[2021-07-19 20:00] VITALS: BP 119/60
[2021-07-19] MEDS: dextrose 5%-water 1,000 ML IV SCH (20:10)
[2021-07-20] VITALS: BP 117/67
[2021-07-20 06:34] LABS: ALANINE AMINOTRANSFERASE 26 U/L (12-78); ALBUMIN/GLOBULIN RATIO 0.6 (1.1-1.5); ALKALINE PHOSPHATASE 73 IU/L (46-116); ANION GAP 5 (8-16); ASPARTATE AMINO TRANSFERASE 15 U/L (10-37); BILIRUBIN,TOTAL 0.9 MG/DL (0.1-1.0); BLOOD UREA NITROGEN 11 MG/DL (7-18); BUN/CREATININE RATIO 22.4 (6.6-38.0); CALCIUM 8.5 MG/DL (8.5-10.1); CHLORIDE 102 MMOL/L (99-107); CREATININE 0.49 MG/DL (0.40-0.90); GLUCOSE 122 MG/DL (70-104); POTASSIUM 3.6 MMOL/L (3.5-5.1); SODIUM 136 MMOL/L (135-145); TOTAL CARBON DIOXIDE 29.5 MMOL/L (24-32); TOTAL PROTEIN 5.3 G/DL (6.4-8.2); eGFR > 90 ML/MIN
[2021-07-20 06:40] LABS: BASOPHILS % (AUTO) 0.5 % (0-1); EOSINOPHILS % (AUTO) 0.4 % (0-6); HEMATOCRIT 30.3 % (35.0-45.0); HEMOGLOBIN 10.4 g/dl (12.0-16.0); LYMPHOCYTES # (AUTO) 0.9 X10'3 (1.1-4.8); LYMPHOCYTES % (AUTO) 16.7 % (21-51); MEAN CORPUSCULAR HEMOGLOBIN 30.2 PG (27.0-31.0); MEAN CORPUSCULAR HGB CONC 34.4 g/dL (33.0-36.5); MEAN PLATELET VOLUME 8.3 FL (7.4-10.4); MONOCYTES # (AUTO) 0.5 X10'3 (0-0.9); MONOCYTES % (AUTO) 10.1 % (2-12); NEUTROPHILS # (AUTO) 3.7 X10'3 (1.8-7.7); NEUTROPHILS % (AUTO) 72.3 % (42-75); PLATELET COUNT 290 X10'3 (140-440); RED BLOOD COUNT 3.44 X10'6 (4.20-5.60); RED CELL DISTRIBUTION WIDTH 14.3 % (11.5-14.5); WHITE BLOOD COUNT 5.1 X10'3 (4.5-11.0)
--- NOTE | 2021-07-20 06:50 | NUR ---
Patient in room [facility]. I have received report from Hermila CAI Traveler and had the opportunity to ask questions and assume patient care.
[2021-07-20] MEDS: vancomycin/NS 1 GM ADD-VANTAGE 250 ML IV SCH (07:44)
[2021-07-20] MEDS: lactobacillus rhamnosus 10,000 MMU CELLS/CAPSULE PO SCH ×2 (07:45→19:50)
[2021-07-20] MEDS: pantoprazole 40mg Tablet.DR PO SCH (07:45)
[2021-07-20] MEDS: docusate sodium 100mg/10ml UD cup PO SCH ×2 (07:45→19:51)
[2021-07-20 08:00] VITALS: BP 105/44
[2021-07-20] MEDS: Dakins solution (1/4 strength) 473ml solution TP SCH (08:00)
[2021-07-20] MEDS: K and/or MAG REPLACEMENT MC SCH ×2 (08:00→19:51)
[2021-07-20 11:00] VITALS: BP 121/61
[2021-07-20] MEDS: levoFLOXACIN-Levaquin 500mg/D5 100 ML IV SCH (12:30)
[2021-07-20] MEDS: dextrose 5%-water 1,000 ML IV SCH (13:59)
--- NOTE | 2021-07-20 18:37 | NUR ---
Problems reprioritized. Patient report given, questions answered & plan of care reviewed with Hermila RN Traveler.
[2021-07-20 20:00] VITALS: BP 109/57
[2021-07-21] VITALS: BP 118/64
[2021-07-21 06:00] LABS: BASOPHILS % (AUTO) 0.8 % (0-1); EOSINOPHILS % (AUTO) 0.6 % (0-6); HEMATOCRIT 30.8 % (35.0-45.0); HEMOGLOBIN 10.5 g/dl (12.0-16.0); LYMPHOCYTES # (AUTO) 0.9 X10'3 (1.1-4.8); LYMPHOCYTES % (AUTO) 16.6 % (21-51); MEAN CORPUSCULAR HGB CONC 34.1 g/dL (33.0-36.5); MEAN PLATELET VOLUME 8.4 FL (7.4-10.4); MONOCYTES # (AUTO) 0.4 X10'3 (0-0.9); MONOCYTES % (AUTO) 8.6 % (2-12); NEUTROPHILS # (AUTO) 3.8 X10'3 (1.8-7.7); NEUTROPHILS % (AUTO) 73.4 % (42-75); PLATELET COUNT 284 X10'3 (140-440); RED CELL DISTRIBUTION WIDTH 14.1 % (11.5-14.5); WHITE BLOOD COUNT 5.2 X10'3 (4.5-11.0)
[2021-07-21 06:32] LABS: ALANINE AMINOTRANSFERASE 24 U/L (12-78); ALBUMIN 2.2 G/DL (3.4-5.0); ALBUMIN/GLOBULIN RATIO 0.7 (1.1-1.5); ALKALINE PHOSPHATASE 73 IU/L (46-116); ANION GAP 3 (8-16); ASPARTATE AMINO TRANSFERASE 16 U/L (10-37); BILIRUBIN,TOTAL 1.2 MG/DL (0.1-1.0); BLOOD UREA NITROGEN 8 MG/DL (7-18); BUN/CREATININE RATIO 17.8 (6.6-38.0); CALCIUM 8.7 MG/DL (8.5-10.1); CHLORIDE 104 MMOL/L (99-107); CREATININE 0.45 MG/DL (0.40-0.90); GLUCOSE 115 MG/DL (70-104); POTASSIUM 3.7 MMOL/L (3.5-5.1); SODIUM 136 MMOL/L (135-145); TOTAL CARBON DIOXIDE 29.2 MMOL/L (24-32); TOTAL PROTEIN 5.5 G/DL (6.4-8.2); eGFR > 90 ML/MIN
--- NOTE | 2021-07-21 06:42 | NUR ---
Patient in room [facility] 356B. I have received report from AYALA CASTILLO and had the opportunity to ask questions and assume patient care.
[2021-07-21 07:00] VITALS: BP 108/54
[2021-07-21] MEDS: K and/or MAG REPLACEMENT MC SCH ×2 (08:00→20:00)
[2021-07-21] MEDS: lactose-reduced food (Ensure Enlive) - 237ml bottle PO SCH ×3 (08:00→18:00)
[2021-07-21] MEDS: docusate sodium 100mg/10ml UD cup PO SCH ×2 (08:41→20:51)
[2021-07-21] MEDS: pantoprazole 40mg Tablet.DR PO SCH (08:42)
[2021-07-21] MEDS: levoFLOXACIN-Levaquin 500mg/D5 100 ML IV SCH (08:42)
[2021-07-21] MEDS: lactobacillus rhamnosus 10,000 MMU CELLS/CAPSULE PO SCH ×2 (08:42→20:51)
[2021-07-21] MEDS: dextrose 5%-water 1,000 ML IV SCH ×2 (09:59→21:08)
[2021-07-21 11:00] VITALS: BP 115/55
[2021-07-21] MEDS: vancomycin/NS 1 GM ADD-VANTAGE 250 ML IV SCH (12:03)
[2021-07-21] MEDS: Dakins solution (1/4 strength) 473ml solution TP SCH (12:04)
--- NOTE | 2021-07-21 12:26 | NUR ---
Reassessment: Pt continues on Puree diet w/ low PO intake, avg 29% x 9 meals partially meeting needs. Noted Ensure Enlive TID just verified today and pt will begin receiving them. ONS alone would meet 71% of est energy needs and 85% of est protein needs if consumed 100%. Unclear if pt has gone for debridement yet. Pt remains confused A&O x 1 and needs feeder per physical assessment. LBM 07/18 receiving routine colace. Will continue to monitor. Recommendations: 1) Continue pureed diet with thin liquids per ST recs 2) Ensure Enlive TID. 3) IF meal acceptance does not improve, consider EN if within POC 4) Routine bowel care 5) Scaled weight this admit; weekly scaled weights thereafter Addendum: 07/21/21 at [address] Amended: Links added.
--- NOTE | 2021-07-21 18:45 | NUR ---
Problems reprioritized. Patient report given, questions answered & plan of care reviewed with AYALA CASTILLO.
[2021-07-21 19:00] VITALS: BP 131/70
[2021-07-22] VITALS: BP 115/72
[2021-07-22 06:00] VITALS: BP 130/57
[2021-07-22] MEDS ORDERED: VANCOMYCIN LEVEL IV ONE (07:30)
[2021-07-22] MEDS: K and/or MAG REPLACEMENT MC SCH ×2 (08:00→20:00)
[2021-07-22 09:09] LABS: BASOPHILS # (AUTO) 0.1 X10'3 (0-0.2); BASOPHILS % (AUTO) 1.2 % (0-1); EOSINOPHILS % (AUTO) 0.3 % (0-6); HEMATOCRIT 30.1 % (35.0-45.0); HEMOGLOBIN 10.5 g/dl (12.0-16.0); LYMPHOCYTES # (AUTO) 0.9 X10'3 (1.1-4.8); LYMPHOCYTES % (AUTO) 17.7 % (21-51); MEAN CORPUSCULAR HEMOGLOBIN 30.8 PG (27.0-31.0); MEAN CORPUSCULAR HGB CONC 35.1 g/dL (33.0-36.5); MEAN CORPUSCULAR VOLUME 87.7 FL (78-98); MONOCYTES # (AUTO) 0.5 X10'3 (0-0.9); MONOCYTES % (AUTO) 8.6 % (2-12); NEUTROPHILS # (AUTO) 3.8 X10'3 (1.8-7.7); NEUTROPHILS % (AUTO) 72.2 % (42-75); PLATELET COUNT 291 X10'3 (140-440); RED BLOOD COUNT 3.43 X10'6 (4.20-5.60); RED CELL DISTRIBUTION WIDTH 13.8 % (11.5-14.5); WHITE BLOOD COUNT 5.3 X10'3 (4.5-11.0)
[2021-07-22] MEDS: lactose-reduced food (Ensure Enlive) - 237ml bottle PO SCH ×3 (09:14→18:00)
[2021-07-22] MEDS: pantoprazole 40mg Tablet.DR PO SCH (09:14)
[2021-07-22] MEDS: levoFLOXACIN-Levaquin 500mg/D5 100 ML IV SCH (09:14)
[2021-07-22] MEDS: docusate sodium 100mg/10ml UD cup PO SCH ×2 (09:14→20:42)
[2021-07-22] MEDS: lactobacillus rhamnosus 10,000 MMU CELLS/CAPSULE PO SCH ×2 (09:14→20:42)
[2021-07-22] MEDS: Dakins solution (1/4 strength) 473ml solution TP SCH (09:15)
[2021-07-22 09:23] LABS: ALANINE AMINOTRANSFERASE 20 U/L (12-78); ALBUMIN 2.3 G/DL (3.4-5.0); ALBUMIN/GLOBULIN RATIO 0.7 (1.1-1.5); ALKALINE PHOSPHATASE 74 IU/L (46-116); ANION GAP 4 (8-16); ASPARTATE AMINO TRANSFERASE 14 U/L (10-37); BILIRUBIN,TOTAL 1.2 MG/DL (0.1-1.0); BLOOD UREA NITROGEN 10 MG/DL (7-18); BUN/CREATININE RATIO 20.8 (6.6-38.0); CHLORIDE 103 MMOL/L (99-107); CREATININE 0.48 MG/DL (0.40-0.90); GLUCOSE 111 MG/DL (70-104); POTASSIUM 3.9 MMOL/L (3.5-5.1); SODIUM 136 MMOL/L (135-145); TOTAL CARBON DIOXIDE 29.2 MMOL/L (24-32); TOTAL PROTEIN 5.6 G/DL (6.4-8.2); eGFR > 90 ML/MIN
[2021-07-22 09:24] LABS: VANCOMYCIN,TROUGH 9.6 UG/ML (6.0-14.0)
[2021-07-22] MEDS: vancomycin/NS 1 GM ADD-VANTAGE 250 ML IV SCH (10:45)
[2021-07-22 11:00] VITALS: BP 110/53
--- NOTE | 2021-07-22 18:24 | NUR ---
Problems reprioritized. Patient report given, questions answered & plan of care reviewed with EULALIA Bosch.
[2021-07-22 20:00] VITALS: BP 116/58
[2021-07-22] MEDS: vancomycin inj. 750 MG in normal saline 250ml IV soln 250 ML IV SCH (22:52)
[2021-07-22] MEDS: dextrose 5%-water 1,000 ML IV SCH (22:53)
[2021-07-23] VITALS: BP 92/50
[2021-07-23 00:30] VITALS: BP 106/60
[2021-07-23 06:37] LABS: ALANINE AMINOTRANSFERASE 19 U/L (12-78); ALBUMIN 2.1 G/DL (3.4-5.0); ALBUMIN/GLOBULIN RATIO 0.8 (1.1-1.5); ALKALINE PHOSPHATASE 68 IU/L (46-116); ANION GAP 9 (8-16); ASPARTATE AMINO TRANSFERASE 14 U/L (10-37); BILIRUBIN,TOTAL 0.9 MG/DL (0.1-1.0); BLOOD UREA NITROGEN 19 MG/DL (7-18); CALCIUM 8.2 MG/DL (8.5-10.1); CHLORIDE 103 MMOL/L (99-107); GLUCOSE 135 MG/DL (70-104); POTASSIUM 3.7 MMOL/L (3.5-5.1); SODIUM 136 MMOL/L (135-145); TOTAL CARBON DIOXIDE 24.4 MMOL/L (24-32); TOTAL PROTEIN 4.6 G/DL (6.4-8.2); eGFR > 90 ML/MIN
[2021-07-23] MEDS: pantoprazole 40mg Tablet.DR PO SCH (07:30)
[2021-07-23 08:00] VITALS: BP 113/51
[2021-07-23] MEDS: lactobacillus rhamnosus 10,000 MMU CELLS/CAPSULE PO SCH ×2 (08:38→19:31)
[2021-07-23] MEDS: docusate sodium 100mg/10ml UD cup PO SCH ×2 (08:38→19:32)
[2021-07-23] MEDS: lactose-reduced food (Ensure Enlive) - 237ml bottle PO SCH ×3 (08:38→18:00)
[2021-07-23] MEDS: Dakins solution (1/4 strength) 473ml solution TP SCH (08:38)
[2021-07-23] MEDS: K and/or MAG REPLACEMENT MC SCH ×2 (08:38→19:18)
[2021-07-23 09:38] LABS: BASOPHILS % (AUTO) 0.5 % (0-1); EOSINOPHILS % (AUTO) 0.4 % (0-6); LYMPHOCYTES # (AUTO) 0.7 X10'3 (1.1-4.8); LYMPHOCYTES % (AUTO) 16.6 % (21-51); MEAN CORPUSCULAR HEMOGLOBIN 30.6 PG (27.0-31.0); MEAN CORPUSCULAR HGB CONC 34.6 g/dL (33.0-36.5); MEAN CORPUSCULAR VOLUME 88.3 FL (78-98); MEAN PLATELET VOLUME 7.7 FL (7.4-10.4); MONOCYTES # (AUTO) 0.4 X10'3 (0-0.9); MONOCYTES % (AUTO) 9.9 % (2-12); NEUTROPHILS # (AUTO) 2.9 X10'3 (1.8-7.7); NEUTROPHILS % (AUTO) 72.6 % (42-75); PLATELET COUNT 245 X10'3 (140-440); RED BLOOD COUNT 3.28 X10'6 (4.20-5.60); RED CELL DISTRIBUTION WIDTH 14.2 % (11.5-14.5)
[2021-07-23 11:00] VITALS: BP 133/46
[2021-07-23] MEDS: vancomycin inj. 750 MG in normal saline 250ml IV soln 250 ML IV SCH ×2 (11:21→23:31)
[2021-07-23] MEDS: levoFLOXACIN 500mg tablet PO SCH (11:23)
[2021-07-23 20:00] VITALS: BP 111/60
[2021-07-23] MEDS ORDERED: VANCOMYCIN LEVEL IV ONE (22:30)
[2021-07-23] MEDS: dextrose 5%-water 1,000 ML IV SCH (23:31)
[2021-07-24] VITALS: BP 112/71
[2021-07-24 06:19] LABS: BASOPHILS % (AUTO) 0.6 % (0-1); EOSINOPHILS % (AUTO) 0.3 % (0-6); HEMATOCRIT 29.4 % (35.0-45.0); LYMPHOCYTES # (AUTO) 0.6 X10'3 (1.1-4.8); LYMPHOCYTES % (AUTO) 18.5 % (21-51); MEAN CORPUSCULAR HEMOGLOBIN 30.6 PG (27.0-31.0); MEAN PLATELET VOLUME 8.1 FL (7.4-10.4); MONOCYTES # (AUTO) 0.4 X10'3 (0-0.9); MONOCYTES % (AUTO) 12.5 % (2-12); NEUTROPHILS # (AUTO) 2.2 X10'3 (1.8-7.7); NEUTROPHILS % (AUTO) 68.1 % (42-75); PLATELET COUNT 179 X10'3 (140-440); RED BLOOD COUNT 3.26 X10'6 (4.20-5.60); RED CELL DISTRIBUTION WIDTH 14.6 % (11.5-14.5); WHITE BLOOD COUNT 3.3 X10'3 (4.5-11.0)
[2021-07-24 06:47] LABS: ALANINE AMINOTRANSFERASE 16 U/L (12-78); ALBUMIN 2.2 G/DL (3.4-5.0); ALBUMIN/GLOBULIN RATIO 0.8 (1.1-1.5); ALKALINE PHOSPHATASE 64 IU/L (46-116); ANION GAP 3 (8-16); ASPARTATE AMINO TRANSFERASE 20 U/L (10-37); BILIRUBIN,TOTAL 0.9 MG/DL (0.1-1.0); BLOOD UREA NITROGEN 16 MG/DL (7-18); BUN/CREATININE RATIO 47.1 (6.6-38.0); CALCIUM 7.9 MG/DL (8.5-10.1); CHLORIDE 107 MMOL/L (99-107); CREATININE 0.34 MG/DL (0.40-0.90); GLUCOSE 124 MG/DL (70-104); SODIUM 137 MMOL/L (135-145); TOTAL CARBON DIOXIDE 27.5 MMOL/L (24-32); TOTAL PROTEIN 4.8 G/DL (6.4-8.2); eGFR > 90 ML/MIN
[2021-07-24 06:48] LABS: POTASSIUM 3.9 MMOL/L (3.5-5.1)
[2021-07-24 07:00] VITALS: BP 117/51
[2021-07-24] MEDS: docusate sodium 100mg/10ml UD cup PO SCH ×2 (08:00→21:40)
[2021-07-24] MEDS: lactose-reduced food (Ensure Enlive) - 237ml bottle PO SCH ×3 (08:00→18:01)
[2021-07-24] MEDS: K and/or MAG REPLACEMENT MC SCH ×2 (08:00→20:00)
[2021-07-24] MEDS: pantoprazole 40mg Tablet.DR PO SCH (09:34)
[2021-07-24] MEDS: lactobacillus rhamnosus 10,000 MMU CELLS/CAPSULE PO SCH ×2 (09:35→21:40)
[2021-07-24] MEDS: levoFLOXACIN 500mg tablet PO SCH (11:46)
[2021-07-24] MEDS: vancomycin inj. 750 MG in normal saline 250ml IV soln 250 ML IV SCH ×2 (11:46→23:17)
--- NOTE | 2021-07-24 11:55 | NUR ---
Reassessment: Pt continues on Puree diet w/ low PO intake, avg 20% x 8 meals and ~59% PO intake ONS x 8, though ONS intake improved to 100% x 1 day, meeting ~89% estimated energy needs and ~79% of estimated protein needs with addition of D5 at 50 ml/h providing 204 kcals/d. Possible need for supplemental nutrition if PO trends decline. Pt remains confused A&O x 1 and needs feeder per physical assessment. LBM 07/18, receiving routine colace w/ MoM available PRN though not given. Will continue to monitor. Recommendations: 1) Continue pureed diet with thin liquids per ST recs 2) Ensure Enlive TIDWM. 3) IF meal acceptance does not improve, consider EN if within POC 4) Routine bowel care 5) Scaled weight this admit; weekly scaled weights thereafter Addendum: 07/24/21 at [address] Amended: Links added. Addendum: 07/24/21 at [address] I have reviewed assessment by internal medicine doctor
--- NOTE | 2021-07-24 12:18 | NUR ---
Message: Cherie Rivera 271B sPOKE WITH FAMILY AND THEY STATE PT. GOING TO CC?? PT. HAS NO ANTICOAG IF NOT. Jaime [phone]
[2021-07-24] MEDS: Dakins solution (1/4 strength) 473ml solution TP SCH (16:30)
[2021-07-24] MEDS: dextrose 5%-water 1,000 ML IV SCH ×2 (17:59→23:18)
[2021-07-24 18:00] VITALS: BP 120/53
--- NOTE | 2021-07-24 18:43 | NUR ---
GAVE REPORT TO HERNAN CAI.
[2021-07-25] VITALS: BP 129/55
[2021-07-25 06:36] LABS: BASOPHILS % (AUTO) 0.6 % (0-1); EOSINOPHILS % (AUTO) 0.2 % (0-6); HEMATOCRIT 27.3 % (35.0-45.0); HEMOGLOBIN 9.3 g/dl (12.0-16.0); LYMPHOCYTES # (AUTO) 0.7 X10'3 (1.1-4.8); LYMPHOCYTES % (AUTO) 23.4 % (21-51); MEAN CORPUSCULAR HEMOGLOBIN 30.2 PG (27.0-31.0); MEAN CORPUSCULAR HGB CONC 34.3 g/dL (33.0-36.5); MEAN CORPUSCULAR VOLUME 88.3 FL (78-98); MEAN PLATELET VOLUME 8.3 FL (7.4-10.4); MONOCYTES # (AUTO) 0.4 X10'3 (0-0.9); MONOCYTES % (AUTO) 14.4 % (2-12); NEUTROPHILS # (AUTO) 1.8 X10'3 (1.8-7.7); NEUTROPHILS % (AUTO) 61.4 % (42-75); PLATELET COUNT 177 X10'3 (140-440); RED BLOOD COUNT 3.09 X10'6 (4.20-5.60); RED CELL DISTRIBUTION WIDTH 14.9 % (11.5-14.5); WHITE BLOOD COUNT 2.9 X10'3 (4.5-11.0)
[2021-07-25 06:57] LABS: ALANINE AMINOTRANSFERASE 15 U/L (12-78); ALBUMIN 2.1 G/DL (3.4-5.0); ALBUMIN/GLOBULIN RATIO 0.8 (1.1-1.5); ALKALINE PHOSPHATASE 58 IU/L (46-116); ANION GAP 4 (8-16); ASPARTATE AMINO TRANSFERASE 18 U/L (10-37); BILIRUBIN,TOTAL 0.9 MG/DL (0.1-1.0); BLOOD UREA NITROGEN 14 MG/DL (7-18); BUN/CREATININE RATIO 33.3 (6.6-38.0); CALCIUM 7.7 MG/DL (8.5-10.1); CHLORIDE 107 MMOL/L (99-107); CREATININE 0.42 MG/DL (0.40-0.90); GLUCOSE 121 MG/DL (70-104); POTASSIUM 3.8 MMOL/L (3.5-5.1); SODIUM 139 MMOL/L (135-145); TOTAL CARBON DIOXIDE 27.9 MMOL/L (24-32); TOTAL PROTEIN 4.6 G/DL (6.4-8.2); eGFR > 90 ML/MIN
[2021-07-25 08:00] VITALS: BP 110/57
[2021-07-25] MEDS: K and/or MAG REPLACEMENT MC SCH ×2 (08:00→20:00)
[2021-07-25] MEDS: lactose-reduced food (Ensure Enlive) - 237ml bottle PO SCH ×3 (08:00→18:31)
[2021-07-25 08:03] LABS: PLATELET ESTIMATE NORMAL; POIKILOCYTOSIS FEW; TOTAL CELLS COUNTED 100
[2021-07-25] MEDS: docusate sodium 100mg/10ml UD cup PO SCH ×2 (10:07→19:50)
[2021-07-25] MEDS: pantoprazole 40mg Tablet.DR PO SCH (10:07)
[2021-07-25] MEDS: lactobacillus rhamnosus 10,000 MMU CELLS/CAPSULE PO SCH ×2 (10:07→19:50)
[2021-07-25] MEDS: levoFLOXACIN 500mg tablet PO SCH (10:07)
[2021-07-25] MEDS: HYDROcodone/acetaminophen 5mg/325mg tablet PO PRN (10:08)
[2021-07-25 11:00] VITALS: BP 100/51
[2021-07-25] MEDS: vancomycin inj. 750 MG in normal saline 250ml IV soln 250 ML IV SCH ×3 (11:09→23:29)
[2021-07-25] MEDS: Dakins solution (1/4 strength) 473ml solution TP SCH (16:40)
[2021-07-25 18:00] VITALS: BP 121/51
--- NOTE | 2021-07-25 18:30 | NUR ---
Gave report to Melba Brock.
--- NOTE | 2021-07-25 19:07 | NUR ---
Patient in room [facility]. I have received report from Raven CAI and had the opportunity to ask questions and assume patient care.
[2021-07-26] VITALS: BP 119/54
[2021-07-26 06:27] LABS: BASOPHILS % (AUTO) 0.5 % (0-1); EOSINOPHILS % (AUTO) 0.6 % (0-6); HEMATOCRIT 26.4 % (35.0-45.0); LYMPHOCYTES # (AUTO) 0.8 X10'3 (1.1-4.8); LYMPHOCYTES % (AUTO) 27.4 % (21-51); MEAN CORPUSCULAR HEMOGLOBIN 30.5 PG (27.0-31.0); MEAN CORPUSCULAR HGB CONC 34.2 g/dL (33.0-36.5); MEAN CORPUSCULAR VOLUME 89.1 FL (78-98); MEAN PLATELET VOLUME 8.5 FL (7.4-10.4); MONOCYTES # (AUTO) 0.4 X10'3 (0-0.9); MONOCYTES % (AUTO) 14.3 % (2-12); NEUTROPHILS # (AUTO) 1.6 X10'3 (1.8-7.7); NEUTROPHILS % (AUTO) 57.2 % (42-75); PLATELET COUNT 149 X10'3 (140-440); RED BLOOD COUNT 2.97 X10'6 (4.20-5.60); RED CELL DISTRIBUTION WIDTH 14.9 % (11.5-14.5); WHITE BLOOD COUNT 2.8 X10'3 (4.5-11.0)
--- NOTE | 2021-07-26 06:33 | NUR ---
Patient in room [facility]. I have received report from Melba and had the opportunity to ask questions and assume patient care.
--- NOTE | 2021-07-26 06:37 | NUR ---
Problems reprioritized. Patient report given, questions answered & plan of care reviewed with Oscar CAI.
[2021-07-26 06:40] LABS: ALANINE AMINOTRANSFERASE 24 U/L (12-78); ALBUMIN/GLOBULIN RATIO 0.8 (1.1-1.5); ALKALINE PHOSPHATASE 64 IU/L (46-116); ANION GAP 5 (8-16); ASPARTATE AMINO TRANSFERASE 22 U/L (10-37); BILIRUBIN,TOTAL 0.7 MG/DL (0.1-1.0); BLOOD UREA NITROGEN 21 MG/DL (7-18); BUN/CREATININE RATIO 38.2 (6.6-38.0); CALCIUM 7.8 MG/DL (8.5-10.1); CHLORIDE 107 MMOL/L (99-107); CREATININE 0.55 MG/DL (0.40-0.90); GLUCOSE 117 MG/DL (70-104); POTASSIUM 3.7 MMOL/L (3.5-5.1); SODIUM 140 MMOL/L (135-145); TOTAL CARBON DIOXIDE 27.7 MMOL/L (24-32); TOTAL PROTEIN 4.4 G/DL (6.4-8.2); eGFR > 90 ML/MIN
[2021-07-26 07:07] LABS: PLATELET ESTIMATE NORMAL; POIKILOCYTOSIS FEW; TOTAL CELLS COUNTED 100
[2021-07-26 07:30] VITALS: BP 108/57
[2021-07-26] MEDS: pantoprazole 40mg Tablet.DR PO SCH (07:36)
[2021-07-26] MEDS: docusate sodium 100mg/10ml UD cup PO SCH ×2 (07:36→20:20)
[2021-07-26] MEDS: lactobacillus rhamnosus 10,000 MMU CELLS/CAPSULE PO SCH ×2 (07:36→20:20)
[2021-07-26] MEDS: K and/or MAG REPLACEMENT MC SCH ×2 (07:37→20:18)
[2021-07-26] MEDS: Dakins solution (1/4 strength) 473ml solution TP SCH (07:40)
[2021-07-26] MEDS: lactose-reduced food (Ensure Enlive) - 237ml bottle PO SCH ×3 (07:41→18:07)
[2021-07-26] MEDS: dextrose 5%-water 1,000 ML IV SCH (11:32)
[2021-07-26] MEDS: levoFLOXACIN 500mg tablet PO SCH (11:38)
[2021-07-26] MEDS: vancomycin inj. 750 MG in normal saline 250ml IV soln 250 ML IV SCH (11:49)
--- NOTE | 2021-07-26 18:33 | NUR ---
Problems reprioritized. Patient report given, questions answered & plan of care reviewed with Mariana.
[2021-07-26 20:00] VITALS: BP 105/49
[2021-07-27] VITALS: BP 120/61
--- NOTE | 2021-07-27 05:24 | NUR ---
pt daughter called on last night inquiring on how her mother was doing in which she was informed that there has been no change with her mother. I informed her that she needs to call and speak with the physician and also to call on wednesday to speak with professor of social work about plans for her mother. Th physician number was given and she stated that she will do that..
[2021-07-27 06:48] LABS: BASOPHILS % (AUTO) 0.5 % (0-1); EOSINOPHILS % (AUTO) 0.9 % (0-6); HEMATOCRIT 27.7 % (35.0-45.0); HEMOGLOBIN 9.5 g/dl (12.0-16.0); LYMPHOCYTES # (AUTO) 0.8 X10'3 (1.1-4.8); LYMPHOCYTES % (AUTO) 32.4 % (21-51); MEAN CORPUSCULAR HEMOGLOBIN 30.1 PG (27.0-31.0); MEAN CORPUSCULAR HGB CONC 34.3 g/dL (33.0-36.5); MEAN CORPUSCULAR VOLUME 87.8 FL (78-98); MEAN PLATELET VOLUME 8.1 FL (7.4-10.4); MONOCYTES # (AUTO) 0.3 X10'3 (0-0.9); MONOCYTES % (AUTO) 11.6 % (2-12); NEUTROPHILS # (AUTO) 1.4 X10'3 (1.8-7.7); NEUTROPHILS % (AUTO) 54.6 % (42-75); PLATELET COUNT 135 X10'3 (140-440); RED BLOOD COUNT 3.16 X10'6 (4.20-5.60); RED CELL DISTRIBUTION WIDTH 14.8 % (11.5-14.5); WHITE BLOOD COUNT 2.6 X10'3 (4.5-11.0)
[2021-07-27] MEDS: Dakins solution (1/4 strength) 473ml solution TP SCH (07:22)
[2021-07-27 07:36] LABS: ALANINE AMINOTRANSFERASE 23 U/L (12-78); ALBUMIN 2.3 G/DL (3.4-5.0); ALBUMIN/GLOBULIN RATIO 0.9 (1.1-1.5); ALKALINE PHOSPHATASE 64 IU/L (46-116); ANION GAP 9 (8-16); ASPARTATE AMINO TRANSFERASE 24 U/L (10-37); BILIRUBIN,TOTAL 0.8 MG/DL (0.1-1.0); BLOOD UREA NITROGEN 15 MG/DL (7-18); BUN/CREATININE RATIO 35.7 (6.6-38.0); CHLORIDE 109 MMOL/L (99-107); CREATININE 0.42 MG/DL (0.40-0.90); GLUCOSE 104 MG/DL (70-104); POTASSIUM 3.7 MMOL/L (3.5-5.1); SODIUM 142 MMOL/L (135-145); eGFR > 90 ML/MIN
[2021-07-27 07:40] LABS: PLATELET ESTIMATE DECREASED; TOTAL CELLS COUNTED 100
[2021-07-27 07:41] LABS: BURR CELLS FEW; POIKILOCYTOSIS FEW; SCHISTOCYTES FEW
[2021-07-27] MEDS: docusate sodium 100mg/10ml UD cup PO SCH (08:09)
[2021-07-27] MEDS: lactobacillus rhamnosus 10,000 MMU CELLS/CAPSULE PO SCH (08:09)
[2021-07-27] MEDS: pantoprazole 40mg Tablet.DR PO SCH (08:09)
[2021-07-27] MEDS: dextrose 5%-water 1,000 ML IV SCH (08:10)
[2021-07-27] MEDS: lactose-reduced food (Ensure Enlive) - 237ml bottle PO SCH ×3 (08:11→18:00)
[2021-07-27 08:20] VITALS: BP 120/49
--- NOTE | 2021-07-27 10:57 | NUR ---
Reassessment: Pt continues on Puree diet w/ improvement in PO intake, avg 68% x 8 meals and ~33% PO intake ONS x 8, additionally receiving D5 at 50 ml/h providing 204 kcals/d. Overall PO plus IVF meets 100% of est protein and energy needs. Pt apparently independent w/ meals now per documentation. LBM 07/25, receiving routine colace Will continue to monitor. Recommendations: 1) Continue pureed diet with thin liquids per ST recs 2) Ensure Enlive TIDWM. 3) IF meal acceptance does not improve, consider EN if within POC 4) Routine bowel care 5) Scaled weight this admit; weekly scaled weights thereafter Addendum: 07/27/21 at [address] Amended: Links added.
[2021-07-27 11:00] VITALS: BP 102/49
[2021-07-27] MEDS ORDERED: morphine ORAL 5MG/0.25 ML (Conc. morphine) oral syringe PO PRN (12:45)
[2021-07-27 18:00] VITALS: BP 107/45
--- NOTE | 2021-07-27 18:53 | NUR ---
Patient in room [facility]. I have received report from Melvina CAI and had the opportunity to ask questions and assume patient care.
[2021-07-27] MEDS: bisacodyl 10mg suppository rectal RC STA ×2 (20:12→20:25)
--- NOTE | 2021-07-27 20:28 | NUR ---
prepared dulcolax suppository for patient, only for patient to have voided in the meantime. Undid medical technician assistant in eMAR and will wait to administer until patient is no longer voiding naturally
[2021-07-27] MEDS: morphine 10mg/0.5ml (conc. morphine) oral syringe PO PRN (20:53)
--- NOTE | 2021-07-28 06:29 | NUR ---
Problems reprioritized. Patient report given, questions answered & plan of care reviewed with Melvina CAI.
[2021-07-28] MEDS: Dakins solution (1/4 strength) 473ml solution TP SCH (07:05)
[2021-07-28] MEDS: lactose-reduced food (Ensure Enlive) - 237ml bottle PO SCH ×3 (08:00→18:00)
[2021-07-28 08:27] VITALS: BP 93/49
[2021-07-28 18:00] VITALS: BP 119/59
[2021-07-28 19:57] VITALS: BP 119/59
--- NOTE | 2021-07-28 21:11 | NUR ---
reassessment of roxanol not done on prior 2 shifts. I am unable to assess since it has been 24 hours since medication was given, however red box needed to be cleared.
--- NOTE | 2021-07-29 06:15 | NUR ---
Problems reprioritized. Patient report given, questions answered & plan of care reviewed with Roberto CAI.
[2021-07-29 07:00] VITALS: BP 122/65
[2021-07-29] MEDS: lactose-reduced food (Ensure Enlive) - 237ml bottle PO SCH ×3 (08:00→19:00)
[2021-07-29] MEDS: Dakins solution (1/4 strength) 473ml solution TP SCH (08:00)
--- NOTE | 2021-07-29 10:08 | NUR ---
Patient comfortable at this time, no signs of pain
--- NOTE | 2021-07-29 12:52 | NUR ---
Wound care not done, patient refused.
--- NOTE | 2021-07-29 14:24 | NUR ---
Patient sleeping comfortably, no signs of pain nor any sign of distress.
[2021-07-29] MEDS: morphine 10mg/0.5ml (conc. morphine) oral syringe PO PRN (17:14)
[2021-07-29 18:00] VITALS: BP 131/70
--- NOTE | 2021-07-29 18:40 | NUR ---
Patient in room [facility]. I have received report from DERICK CAI and had the opportunity to ask questions and assume patient care.
--- NOTE | 2021-07-30 06:13 | NUR ---
Problems reprioritized. Patient report given, questions answered & plan of care reviewed with DERICK CAI.
[2021-07-30 07:00] VITALS: BP 124/57
[2021-07-30] MEDS: lactose-reduced food (Ensure Enlive) - 237ml bottle PO SCH ×3 (08:00→18:00)
[2021-07-30] MEDS: Dakins solution (1/4 strength) 473ml solution TP SCH (08:00)
--- NOTE | 2021-07-30 13:09 | NUR ---
Patient refused to have wound care done this am
--- NOTE | 2021-07-30 18:31 | NUR ---
Patient in room [facility]. I have received report from AYALA Ortega and had the opportunity to ask questions and assume patient care.
[2021-07-30 20:00] VITALS: BP 118/62
[2021-07-31] MEDS: morphine 10mg/0.5ml (conc. morphine) oral syringe PO PRN (05:31)
--- NOTE | 2021-07-31 06:17 | NUR ---
Problems reprioritized. Patient report given, questions answered & plan of care reviewed with AYALA Bajwa and AYALA Oconnell.
[2021-07-31 07:00] VITALS: BP 109/56
--- NOTE | 2021-07-31 07:02 | NUR ---
Patient in room [facility]. I have received report from Monica and had the opportunity to ask questions and assume patient care.
--- NOTE | 2021-07-31 08:39 | NUR ---
F/u: Noted pt has been made DNR with comfort care. [facility] 07/29. Will continue to follow per LOS. Recommendations: 1) Bowel care per comfort care measures Addendum: 07/31/21 at [address] Amended: Links added.
[2021-07-31] MEDS: Dakins solution (1/4 strength) 473ml solution TP SCH (08:43)
[2021-07-31] MEDS: lactose-reduced food (Ensure Enlive) - 237ml bottle PO SCH ×3 (08:43→19:00)
--- NOTE | 2021-07-31 18:43 | NUR ---
Problems reprioritized. Patient report given, questions answered & plan of care reviewed with Clover Galo.
--- NOTE | 2021-07-31 18:45 | NUR ---
Patient in room [facility]. I have received report from ANANYA CAI AND REYNA CAI and had the opportunity to ask questions and assume patient care.
[2021-07-31 20:00] VITALS: BP 104/72
--- NOTE | 2021-08-01 06:00 | NUR ---
Patient in room [facility]. I have received report from Clover Galo and had the opportunity to ask questions and assume patient care.
[2021-08-01 07:00] VITALS: BP 115/62
[2021-08-01] MEDS: lactose-reduced food (Ensure Enlive) - 237ml bottle PO SCH ×3 (08:45→19:00)
[2021-08-01] MEDS: Dakins solution (1/4 strength) 473ml solution TP SCH (08:46)
--- NOTE | 2021-08-01 18:40 | NUR ---
Patient in room [facility]. I have received report from ANANYA CAI AND REYNA CAI and had the opportunity to ask questions and assume patient care.
[2021-08-01 20:00] VITALS: BP 138/60
--- NOTE | 2021-08-02 06:14 | NUR ---
Problems reprioritized. Patient report given, questions answered & plan of care reviewed with ANANYA ACI AND REYNA CAI.
[2021-08-02 07:00] VITALS: BP 124/67
[2021-08-02] MEDS: Dakins solution (1/4 strength) 473ml solution TP SCH (08:49)
[2021-08-02] MEDS: lactose-reduced food (Ensure Enlive) - 237ml bottle PO SCH ×6 (08:49→21:00)
--- NOTE | 2021-08-02 18:11 | NUR ---
Problems reprioritized. Patient report given, questions answered & plan of care reviewed with Jim CAI.
[2021-08-03 07:35] VITALS: BP 110/46
[2021-08-03] MEDS: Dakins solution (1/4 strength) 473ml solution TP SCH (08:00)
--- NOTE | 2021-08-03 18:41 | NUR ---
Report given to Jim CAI. No significant changes on this shift. Pt resting comfortably
[2021-08-04 03:36] VITALS: BP 129/15
--- NOTE | 2021-08-04 06:48 | NUR ---
Patient in room [facility] 356B. I have received report from AYALA COKER and had the opportunity to ask questions and assume patient care.
[2021-08-04 07:25] VITALS: BP 138/69
[2021-08-04] MEDS: lactose-reduced food (Ensure Enlive) - 237ml bottle PO SCH ×3 (08:00→18:12)
[2021-08-04] MEDS: Dakins solution (1/4 strength) 473ml solution TP SCH (08:00)
[2021-08-04 11:00] VITALS: BP 131/63
--- NOTE | 2021-08-04 15:16 | NUR ---
Patient in room [facility]. I have received report from excellence coach RN and had the opportunity to ask questions and assume patient care. gf/student
--- NOTE | 2021-08-04 17:25 | NUR ---
Student documentation: I have reviewed all interventions, assessments performed and documented by CB, STUDENT RN.
--- NOTE | 2021-08-04 18:35 | NUR ---
Problems reprioritized. Patient report given, questions answered & plan of care reviewed with AYALA CONNELLY.
--- NOTE | 2021-08-04 18:35 | NUR ---
Patient in room [facility] 356B. I have received report from AYALA Loaiza and had the opportunity to ask questions and assume patient care.
[2021-08-04 19:00] VITALS: BP 126/66
--- NOTE | 2021-08-05 06:02 | NUR ---
Problems reprioritized. Patient report given, questions answered & plan of care reviewed with AYALA Loaiza.
--- NOTE | 2021-08-05 06:58 | NUR ---
Patient in room [facility] 356B. I have received report from AYALA CONNELLY and had the opportunity to ask questions and assume patient care.
[2021-08-05 07:00] VITALS: BP 121/61
[2021-08-05] MEDS: Dakins solution (1/4 strength) 473ml solution TP SCH (08:00)
[2021-08-05] MEDS: lactose-reduced food (Ensure Enlive) - 237ml bottle PO SCH ×3 (08:00→18:47)
--- NOTE | 2021-08-05 18:45 | NUR ---
Problems reprioritized. Patient report given, questions answered & plan of care reviewed with AYALA CONNELLY.
[2021-08-05 20:00] VITALS: BP 122/76
--- NOTE | 2021-08-06 06:39 | NUR ---
Problems reprioritized. Patient report given, questions answered & plan of care reviewed with AYALA Morgan.
--- NOTE | 2021-08-06 06:39 | NUR ---
Patient in room [facility] 356B. I have received report from AYALA CONNELLY and had the opportunity to ask questions and assume patient care.
--- NOTE | 2021-08-06 06:40 | NUR ---
Patient in room [facility] 356B. I have received report from AYALA CONNELLY and had the opportunity to ask questions and assume patient care.
[2021-08-06] MEDS: lactose-reduced food (Ensure Enlive) - 237ml bottle PO SCH ×3 (09:19→18:00)
[2021-08-06 10:05] VITALS: BP 130/66
--- NOTE | 2021-08-06 10:19 | NUR ---
F/u: Noted pt continues to be DNR with comfort care. Spoke w/ nurse w/ the recommendation to provide bowel care as LBM 2 and discontinue ensure enlive TID per physician approval. Will continue to follow per LOS. Recommendations: 1) Bowel care per comfort care measures Addendum: 08/06/21 at [address] Amended: Links added. Addendum: 08/06/21 at [address] I have reviewed assessment by business analyst intern
[2021-08-06] MEDS ORDERED: bisacodyl 10mg suppository rectal RC PRN (11:10)
[2021-08-06] MEDS: magnesium hydroxide 30ml (MOM) UD suspension PO PRN (13:37)
[2021-08-06 20:00] VITALS: BP 112/60
[2021-08-07] VITALS: BP 112/60
--- NOTE | 2021-08-07 06:37 | NUR ---
Problems reprioritized. Patient report given, questions answered & plan of care reviewed with Cathy.
--- NOTE | 2021-08-07 06:58 | NUR ---
Patient in room [facility] 356B. I have received report from AYALA LOZADA and had the opportunity to ask questions and assume patient care.
[2021-08-07 07:00] VITALS: BP 117/61
[2021-08-07] MEDS: lactose-reduced food (Ensure Enlive) - 237ml bottle PO SCH ×3 (08:00→18:00)
[2021-08-07 12:19] VITALS: BP 126/70
[2021-08-07] MEDS: magnesium hydroxide 30ml (MOM) UD suspension PO PRN (13:35)
[2021-08-07] MEDS: HYDROcodone/acetaminophen 5mg/325mg tablet PO PRN (13:36)
[2021-08-07 18:00] VITALS: BP 121/64
--- NOTE | 2021-08-07 18:23 | NUR ---
Problems reprioritized. Patient report given, questions answered & plan of care reviewed with AYALA GALLEGO.
--- NOTE | 2021-08-07 18:53 | NUR ---
Patient in room [facility]. I have received report from IGNACIO CAI and had the opportunity to ask questions and assume patient care.
[2021-08-08] VITALS: BP 132/62
--- NOTE | 2021-08-08 06:10 | NUR ---
Patient in room [facility]. I have received report from AYALA Pitts and had the opportunity to ask questions and assume patient care.
--- NOTE | 2021-08-08 06:21 | NUR ---
Problems reprioritized. Patient report given, questions answered & plan of care reviewed with HARI RN.
[2021-08-08 06:30] VITALS: BP 113/66
--- NOTE | 2021-08-08 18:00 | NUR ---
Patient in room [facility]. I have received report from HARI CAI and had the opportunity to ask questions and assume patient care.
--- NOTE | 2021-08-08 18:10 | NUR ---
Problems reprioritized. Patient report given, questions answered & plan of care reviewed with AYALA Pitts.
[2021-08-09 06:30] VITALS: BP 114/79
--- NOTE | 2021-08-09 06:34 | NUR ---
Problems reprioritized. Patient report given, questions answered & plan of care reviewed with HARI RN.
--- NOTE | 2021-08-09 06:35 | NUR ---
Patient in room [facility]. I have received report from AYALA Pitts and had the opportunity to ask questions and assume patient care.
--- NOTE | 2021-08-09 18:10 | NUR ---
Problems reprioritized. Patient report given, questions answered & plan of care reviewed with AYALA Pitts.
--- NOTE | 2021-08-09 18:44 | NUR ---
Patient in room [facility]. I have received report from HARI CAI and had the opportunity to ask questions and assume patient care.
[2021-08-09 20:00] VITALS: BP 109/59
--- NOTE | 2021-08-09 23:02 | NUR ---
Problems reprioritized. Patient report given, questions answered & plan of care reviewed with SHEELA CAI.
[2021-08-10] MEDS: morphine 10mg/0.5ml (conc. morphine) oral syringe PO PRN ×2 (00:04→05:17)
--- NOTE | 2021-08-10 06:30 | NUR ---
Patient in room [facility]. I have received report from AYALA Fernandez and had the opportunity to ask questions and assume patient care.
[2021-08-10 07:00] VITALS: BP 111/63
[2021-08-10 18:00] VITALS: BP 123/53
--- NOTE | 2021-08-11 06:58 | NUR ---
Patient in room [facility]. I have received report from domitila mohan and had the opportunity to ask questions and assume patient care.
[2021-08-11 07:20] VITALS: BP 112/58
[2021-08-11] MEDS: morphine 10mg/0.5ml (conc. morphine) oral syringe PO PRN ×2 (07:38→19:53)
--- NOTE | 2021-08-11 18:35 | NUR ---
Problems reprioritized. Patient report given, questions answered & plan of care reviewed with GALI CAI.
--- NOTE | 2021-08-11 18:35 | NUR ---
Patient in room [facility]. I have received report from Bebe CAI and had the opportunity to ask questions and assume patient care.
--- NOTE | 2021-08-12 06:05 | NUR ---
Problems reprioritized. Patient report given, questions answered & plan of care reviewed with Bebe CAI.
[2021-08-12 06:56] VITALS: BP 108/58
--- NOTE | 2021-08-12 07:02 | NUR ---
Patient in room [facility]. I have received report from rosio mohan and had the opportunity to ask questions and assume patient care.
--- NOTE | 2021-08-12 09:49 | NUR ---
F/u: Noted pt continues to be DNR with comfort care. LB 08/10 w/ PRN bowel care. Will continue to monitor Recommendations: 1) Bowel care per comfort care measures Addendum: 08/12/21 at [address] Amended: Links added.
--- NOTE | 2021-08-12 18:23 | NUR ---
Problems reprioritized. Patient report given, questions answered & plan of care reviewed with GALI CAI.
--- NOTE | 2021-08-12 18:25 | NUR ---
Patient in room [facility]. I have received report from Bebe CAI and had the opportunity to ask questions and assume patient care.
[2021-08-12] MEDS: morphine 10mg/0.5ml (conc. morphine) oral syringe PO PRN (22:15)
[2021-08-13 06:30] VITALS: BP 99/51
--- NOTE | 2021-08-13 06:40 | NUR ---
Problems reprioritized. Patient report given, questions answered & plan of care reviewed with Apoorva CAI.
[2021-08-13 07:00] VITALS: BP 99/51
--- NOTE | 2021-08-13 16:02 | NUR ---
Per Dr. Cyr, perform wound care as necessary to keep patient clean.
[2021-08-13] MEDS: morphine 10mg/0.5ml (conc. morphine) oral syringe PO PRN (16:19)
--- NOTE | 2021-08-13 18:23 | NUR ---
Problems reprioritized. Patient report given, questions answered & plan of care reviewed with Jim CAI.
[2021-08-14 01:32] VITALS: BP 112/60
[2021-08-14 06:30] VITALS: BP 124/67
--- NOTE | 2021-08-14 18:18 | NUR ---
Gave report to Jim CAI
[2021-08-14 22:31] VITALS: BP 126/67
[2021-08-15 02:03] VITALS: BP 130/65
[2021-08-15 08:00] VITALS: BP 98/72
[2021-08-15] MEDS: morphine 10mg/0.5ml (conc. morphine) oral syringe PO PRN (08:42)
[2021-08-15] MEDS: magnesium hydroxide 30ml (MOM) UD suspension PO PRN (08:42)
[2021-08-15 11:00] VITALS: BP 114/68
[2021-08-15] MEDS ORDERED: magnesium citrate 296ml oral solution PO ONE ×2 (16:15→20:00)
--- NOTE | 2021-08-15 18:06 | NUR ---
Gave report to Jim CAI.
[2021-08-15 22:05] VITALS: BP 122/86
[2021-08-16 00:26] VITALS: BP 119/74
--- NOTE | 2021-08-16 06:26 | NUR ---
Patient in room [facility]. I have received report from SHEELA CAI and had the opportunity to ask questions and assume patient care.
--- NOTE | 2021-08-16 06:37 | NUR ---
Patient in room [facility]. I have received report from Jim CAI and had the opportunity to ask questions and assume patient care.
[2021-08-16 07:00] VITALS: BP 107/49
[2021-08-16] MEDS: morphine 10mg/0.5ml (conc. morphine) oral syringe PO PRN ×2 (07:17→17:11)
--- NOTE | 2021-08-16 13:00 | NUR ---
Patient in room [facility] 356B. I have received report from AYALA ANNE AND SR SAUL and had the opportunity to ask questions and assume patient care.
--- NOTE | 2021-08-16 13:06 | NUR ---
Problems reprioritized. Patient report given, questions answered & plan of care reviewed with PRANAV mohan.
--- NOTE | 2021-08-16 13:30 | NUR ---
I AGREE WITH OFF GOING NURSE'S ASSESSMENT
--- NOTE | 2021-08-16 15:51 | NUR ---
Student documentation: I have reviewed all interventions, assessments performed and documented by Martir FONSECA . Student Medication Administration: For all medications-passed, medications were reviewed, dispensed, administered and documented per hospital policy by Martir FONSECA .
--- NOTE | 2021-08-16 18:25 | NUR ---
Problems reprioritized. Patient report given, questions answered & plan of care reviewed with SHEELA.
--- NOTE | 2021-08-16 18:33 | NUR ---
Student documentation: I have reviewed and agree with all interventions, assessments documented by AYALA VIVAR.
[2021-08-16 19:00] VITALS: BP 107/49
--- NOTE | 2021-08-17 06:11 | NUR ---
Patient in room [facility] 356B. I have received report from AYALA COKER and had the opportunity to ask questions and assume patient care.
[2021-08-17 07:00] VITALS: BP 110/58
[2021-08-17] MEDS: morphine 10mg/0.5ml (conc. morphine) oral syringe PO PRN (13:20)
--- NOTE | 2021-08-17 18:33 | NUR ---
Problems reprioritized. Patient report given, questions answered & plan of care reviewed with AYALA COKER.
[2021-08-17 19:00] VITALS: BP 110/58
[2021-08-17] MEDS: magnesium hydroxide 30ml (MOM) UD suspension PO PRN (21:22)
--- NOTE | 2021-08-18 06:19 | NUR ---
Patient in room [facility] 356B. I have received report from AYALA COKER and had the opportunity to ask questions and assume patient care.
[2021-08-18 07:00] VITALS: BP 99/40
[2021-08-18] MEDS: morphine 10mg/0.5ml (conc. morphine) oral syringe PO PRN (11:51)
--- NOTE | 2021-08-18 18:06 | NUR ---
Problems reprioritized. Patient report given, questions answered & plan of care reviewed with AYALA GARCIA.
[2021-08-19] MEDS: morphine 10mg/0.5ml (conc. morphine) oral syringe PO PRN (02:42)
--- NOTE | 2021-08-19 06:22 | NUR ---
Problems reprioritized. Patient report given, questions answered & plan of care reviewed with MAYCO. Addendum: 08/19/21 at 0622 by Martir Hess RN Amended: Links added.
[2021-08-19 07:49] VITALS: BP 97/51
--- NOTE | 2021-08-20 06:26 | NUR ---
Problems reprioritized. Patient report given, questions answered & plan of care reviewed with Tasha.
[2021-08-20 08:00] VITALS: BP 107/44
--- NOTE | 2021-08-20 09:29 | NUR ---
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 PO intake fluctuates on pureed diet, documented with 75% PO intake and meal refusals. No nutrition intervention implemented given DNR with comfort care code status. LBM 08/17, with PRN bowel care available last given 08/17 per EMR. Will continue to follow per LOS. Recommendations: 1) Bowel care per comfort care measures Addendum: 08/20/21 at [address] Amended: Links added.
[2021-08-20] MEDS: morphine 10mg/0.5ml (conc. morphine) oral syringe PO PRN (11:31)
[2021-08-20 18:00] VITALS: BP 117/52
[2021-08-21 08:00] VITALS: BP 101/55
[2021-08-22 07:00] VITALS: BP 109/58
--- NOTE | 2021-08-22 08:35 | NUR ---
0000 NPO SINCE MIDNIGHT
[2021-08-23 07:42] VITALS: BP 85/56
[2021-08-24 07:00] VITALS: BP 118/65
--- NOTE | 2021-08-24 07:01 | NUR ---
Patient in room [facility]B. I have received report from Geovany BECERRA had the opportunity to ask questions and assume patient care.
[2021-08-24] MEDS: morphine 10mg/0.5ml (conc. morphine) oral syringe PO PRN (11:13)
--- NOTE | 2021-08-24 18:25 | NUR ---
Problems reprioritized. Patient report given, questions answered & plan of care reviewed with AYALA BECERRA.
--- NOTE | 2021-08-25 06:45 | NUR ---
Patient in room [facility]B. I have received report from Geovany BECERRA had the opportunity to ask questions and assume patient care.
[2021-08-25 11:00] VITALS: BP 108/63
[2021-08-25] MEDS: morphine 10mg/0.5ml (conc. morphine) oral syringe PO PRN ×2 (17:16→21:39)
--- NOTE | 2021-08-25 18:30 | NUR ---
Patient in room [facility]B. I have received report from AYALA Loaiza and had the opportunity to ask questions and assume patient care.
--- NOTE | 2021-08-25 18:33 | NUR ---
Problems reprioritized. Patient report given, questions answered & plan of care reviewed with AYALA CONNELLY.
--- NOTE | 2021-08-25 19:30 | NUR ---
Problems reprioritized. Patient report given, questions answered & plan of care reviewed with AYALA Harrison.
[2021-08-25] MEDS: LORazepam 2 mg/ml vial IV PRN (19:36)
[2021-08-26] MEDS: morphine 10mg/0.5ml (conc. morphine) oral syringe PO PRN (02:24)
--- NOTE | 2021-08-26 06:27 | NUR ---
Problems reprioritized. Patient report given, questions answered & plan of care reviewed with AYALA Loaiza.
--- NOTE | 2021-08-26 06:45 | NUR ---
Patient in room [facility] 345B. I have received report from AYALA JAEGER and had the opportunity to ask questions and assume patient care.
[2021-08-26 08:00] VITALS: BP 88/55
--- NOTE | 2021-08-26 10:44 | NUR ---
Spoke to daughter Adeola who is aware that patient is declining and would like to know if they would like to come and visit her. Per daughter they don't have their covid tests and I advised she can picker a test and bring to hospital to test. Patients daughter was very pleasant and is aware she can call at anytime to check on her mothers status. Per Patients daughter she [facility] [place]. Addendum: 08/26/21 at 1054 by Digna Pickering [phone]
[2021-08-26] MEDS: LORazepam 2 mg/ml vial IV PRN (11:46)
[2021-08-26] MEDS ORDERED: morphine 10mg/0.5ml (conc. morphine) oral syringe PO PRN (12:00)
[2021-08-26] MEDS ORDERED: LORazepam 2 mg/ml vial IV PRN (14:00)
--- NOTE | 2021-08-26 18:00 | NUR ---
Problems reprioritized. Patient report given, questions answered & plan of care reviewed with AYALA PRO.
--- NOTE | 2021-08-26 18:22 | NUR ---
Patient in room [facility]. I have received report from cliff mohan and had the opportunity to ask questions and assume patient care.
--- NOTE | 2021-08-27 05:26 | NUR ---
PT PASSED AT 0518. CALLED DAUGHTER TO NOTIFY, NO ANSWER. LEFT MSG TO RETURN CALL.
--- NOTE | 2021-08-27 05:29 | NUR ---
NOTIFIED DR SULLIVAN OF PTS PASSING
--- NOTE | 2021-08-27 06:30 | NUR ---
Problems reprioritized. Patient report given, questions answered & plan of care reviewed with ALBERTO CAI.
--- NOTE | 2021-08-27 06:48 | NUR ---
Patient in room [facility]. I have received report from Bebe CAI and had the opportunity to ask questions and assume patient care.
--- NOTE | 2021-08-27 07:14 | NUR ---
Called Adeola daughter - left a message.
--- NOTE | 2021-08-27 08:29 | NUR ---
SPOKE TO LEXY DAUGHTER NOTIFIED ABOUT PT'S PASSING. PT STATED SHE WAS EXPECTING IT. PT OKAY WITH FACT THAT PT WAS TAKEN TO [facility].
== END 2021-08-27 12:34 | DRG 682 ==
LOC: ER 15:06 → ED HOLD 07-09 01:52 → SUR 3N 07-09 04:06
PROVIDERS: ADMIT Family Medicine; ATTEND Family Medicine
DX: N17.9 Acute kidney failure, unspecified (principal); E43 Unspecified severe protein-calorie malnutrition; E87.0 Hyperosmolality and hypernatremia; N39.0 Urinary tract infection, site not specified; Z68.1 Body mass index [BMI] 19.9 or less, adult; E86.0 Dehydration; Z20.822 Contact with and (suspected) exposure to COVID-19; B95.2 Enterococcus as the cause of diseases classified elsewhere; L89.612 Pressure ulcer of right heel, stage 2; K59.00 Constipation, unspecified; D64.9 Anemia, unspecified; B96.1 Klebsiella pneumoniae [K. pneumoniae] as the cause of diseases classified elsewhere; G31.83 Neurocognitive disorder with Lewy bodies; L89.150 Pressure ulcer of sacral region, unstageable; F02.80 Dementia in other diseases classified elsewhere, unspecified severity, without behavioral disturbance, psychotic disturbance, mood disturbance, and anxiety; G30.9 Alzheimer's disease, unspecified; Z66 Do not resuscitate; R13.10 Dysphagia, unspecified; R62.7 Adult failure to thrive; Z51.5 Encounter for palliative care; Z88.0 Allergy status to penicillin; Z88.2 Allergy status to sulfonamides
CPT/HCPCS: 36415; 70450; 71045; 80048; 80053; 80061; 80202; 81001; 82948; 83036; 83735; 83880; 83930; 84100; 84484; 85007; 85025; 85610; 85730; 87070; 87077; 87081; 87088; 87186; 87635; 92508; 92616; 93005; 97110; 97161; 97530; 99285; C9803; G0378; J0744; J1644; J1956; J2060; J3370; J7030; J7050; J7070; Q0163